=== PATIENT | male | born 1940 | race Caucasian/White ===

== ENCOUNTER 2018-05-02 11:38 | Inpatient (IN) | payer OTHER, MEDICAID ==
[~2018-05-02] VITALS: Ht 177.8 cm; Wt 68.5 kg
[2018-05-02 11:43] VITALS: BP_SYST 131
--- NOTE | 2018-05-02 11:44 | NUR ---
Patient to ER bed 03 to gown for evaluation. Side rails up. Report given to Willow.
--- NOTE | 2018-05-02 11:44 | NUR ---
patient arrived via BLS from SNF with at bedside. patient is monegasque speaking only however, has been nonverbal and responds only to . patient is at current mental baseline with c/o hiccups x24 hours. SNF staff state they were concerned because he stopped breathing during hiccupping. Oxygen saturations are maintained at 93% during assessment. no other complaint or injury at this time.
--- NOTE | 2018-05-02 11:50 | NUR ---
ER at bedside examining patient.
[2018-05-02] MEDS ORDERED: NACL 0.9% 1,000 ML IV ONE (12:00)
[2018-05-02] MEDS ORDERED: chlorproMAZINE HCL 50 MG/ 2 ML AMP IM ONE ×2 (12:15→13:15)
[2018-05-02 12:30] LABS: BASOPHILS % (AUTO) 0.6 % (0.0-2.0); EOSINOPHILS # (AUTO) 0.1 K/uL (0.0-0.4); EOSINOPHILS % (AUTO) 1.8 % (0.0-4.0); HEMATOCRIT 41.6 % (36-54); HEMOGLOBIN 13.6 g/dL (14.0-18.0); LYMPHOCYTES # (AUTO) 1.6 K/uL (1.0-5.5); MEAN CORPUSCULAR HEMOGLOBIN 31 pg (27-31); MEAN CORPUSCULAR HGB CONC 33 % (32-36); MEAN CORPUSCULAR VOLUME 94 fL (79.0-98.0); MONOCYTES # (AUTO) 0.5 K/uL (0.0-1.0); MONOCYTES % (AUTO) 8.6 % (1.7-9.3); NEUTROPHILS # (AUTO) 3.2 K/uL (1.8-7.7); PLATELET COUNT (AUTO) 204 K/uL (130-430); RED BLOOD CELL COUNT(AUTO) 4.41 MIL/uL (4.2-6.2); RED CELL DISTRIBUTION WIDTH 13.6 % (9.0-15.0); WHITE BLOOD COUNT (AUTO) 5.4 K/uL (4.8-10.8)
--- NOTE | 2018-05-02 12:30 | NUR ---
RESTING QUIETLY, NO CHANGES, REPOSITIONED FOR COMFORT.
[2018-05-02 12:45] LABS: ANION GAP 8 (5-15); CALCIUM 9.1 mg/dL (8.4-11.0); CHLORIDE 106 mmol/L (98-107); CREATININE 0.87 mg/dL (0.55-1.30); GLUCOSE 94 mg/dL (70-99); POTASSIUM 4.2 mmol/L (3.5-5.1); PROTHROMBIN TIME 9.9 SECS (9.5-12.5); SODIUM SERUM 142 mmol/L (136-145); UREA NITROGEN, BLOOD 21 mg/dL (8-21)
[2018-05-02 12:49] LABS: ALANINE AMINOTRANSFERASE 30 U/L (12-78); ASPARTATE AMINOTRANSFERASE 30 U/L (10-37); TOTAL BILIRUBIN 0.5 mg/dL (0.0-1.0)
--- NOTE | 2018-05-02 13:20 | NUR ---
patient given medication as ordered, tolerated well.
--- NOTE | 2018-05-02 13:56 | NUR ---
Patient will be admitted to [facility]. Admitted to Telemetry unit. Will go to room 113A. Belongings list completed. Summary report printed. Report will be given at bedside.
[2018-05-02 14:09] LABS: BILIRUBIN,URINE NEGATIVE (NEGATIVE); BLOOD, URINE NEGATIVE (NEGATIVE); CLARITY/URINE CLEAR (CLEAR); COLOR,URINE YELLOW (YELLOW); GLUCOSE,URINE NEGATIVE (NEGATIVE); KETONES,URINE NEGATIVE (NEGATIVE); LEUKOCYTE ESTERASE ,URINE NEGATIVE (NEGATIVE); NITRITE, URINE NEGATIVE (NEGATIVE); PROTEIN URINE NEGATIVE (NEGATIVE); UROBILINOGEN,URINE 0.2 (0.2-1.0)
--- NOTE | 2018-05-02 14:20 | NUR ---
Admission Note Received patient from ER with diagnosis of CHF. Initial Plan of Care discussed-patient verbalized understanding. Family at bedside. Oriented to room, call light, pain management and safety.
[2018-05-02 14:22] VITALS: BP_SYST 153
[2018-05-02] MEDS ORDERED: MEMA10TA PO (14:30)
[2018-05-02] MEDS ORDERED: TAMS-11 PO (14:30)
[2018-05-02] MEDS ORDERED: DOCU-144 PO (14:30)
[2018-05-02] MEDS ORDERED: MULT-976 PO (14:30)
[2018-05-02] MEDS ORDERED: LISI10TA5 PO (14:30)
[2018-05-02] MEDS ORDERED: LORA10TA7 PO (14:30)
[2018-05-02] MEDS ORDERED: CEL20 PO (14:30)
[2018-05-02] MEDS ORDERED: ASPI-1153 PO (14:30)
[2018-05-02] MEDS ORDERED: PRO40 PO (14:30)
[2018-05-02] MEDS ORDERED: PEG15DRO5 OP (14:30)
[2018-05-02] MEDS ORDERED: ACET325T53 PO (14:30)
--- NOTE | 2018-05-02 14:30 | NUR ---
NOTE PATIENT AWAKE IN BED. ALERT AND CONFUSED. UNABLE TO MAKE NEEDS KNOWN. ROOM AIR. NO ACUTE DISTRESS. NO SOB. RESPIRATION EVEN AND UNLABORED. SKIN WARM AND DRY TO TOUCH. IV INTACT AND PATENT. BED IN LOW AND LOCKED POSITION. SIDERAIL UP X3. BED ALARM ON. ROOM NEAR NURSES STATION. ALL NEEDS MET. AT BEDSIDE. CONT TO MONITOR. CALL LIGHT IN REACH
--- NOTE | 2018-05-02 16:15 | NUR ---
NOTE REPOSITIONED PATIENT WITH BIOLOGY INTERNSHIP, RANDA WELL. KEPT CLEAN AND DRY. CONT TO MONITOR
--- NOTE | 2018-05-02 18:17 | NUR ---
CLOSING NOTE PATIENT AWAKE IN BED. SPEAKING MONTSERRATIAN. CONFUSED. NO ACUTE DISTRESS. DENIES PAIN. PATIENT NOTED WITH HICCUPS. SKIN WARM AND DRY TO TOUCH. KEPT CLEAN AND DRY. ALL NEEDS MET. AT BEDSIDE. BED LOW AND LOCKED POSITION. SIDERAIL UP. BED ALARM ON. CALL LIGHT IN REACH. CONT TO MONITOR. WILL ENDORSE TO ONCOMING SHIFT
[2018-05-02 18:26] VITALS: BP_SYST 154
[2018-05-02] MEDS ORDERED: chlorproMAZINE HCL 50 MG/ 2 ML AMP IM PRN (18:45)
[2018-05-02] MEDS ORDERED: ACETAMINOPHEN 325 MG TABLET PO PRN (18:45)
[2018-05-02] MEDS ORDERED: BISACODYL 10 MG/SUPPOSITORY RC PRN (19:00)
--- NOTE | 2018-05-02 19:45 | NUR ---
Initial Note Received patient asleep but arousable. Awake, opens eyes but went back to sleep after few minutes. Didn't speak. and son at the bedside. No SOB or grimacing noted at this time. Fall and skin precautions observed. Dr. Akbar saw the patient with orders. Skin intact and no peripheral edema noted. Needs attended. Care and monitoring will be provided per protocol. Call light within reach. Bed alarm on and at lowest position at all times. Kept warm and comfortable.
--- NOTE | 2018-05-02 19:58 | NUR ---
CONSULTATION PAGED/CALLED Reason for Consultation: HICCUP Person Who was Notified: KOLTON Consulting Physician: DR. MAJANO; SECURITIES SUPERVISOR- DR. SILVA Ordering Physician: DR. WILLARD
[2018-05-02 20:00] VITALS: BP_SYST 132
[2018-05-02] MEDS: KCL 20 mEq in D5/0.45NS 1000mL 1,000 ML IV SCH (20:29)
[2018-05-02] MEDS: SENNOSIDES 8.6 MG TABLET PO SCH (21:45)
--- NOTE | 2018-05-02 21:45 | NUR ---
RN Note Patient asleep but arousable. IVF infusing. Crushed meds and given with apple sauce, tolerated well. Encouraged to drink more water but refused. Repositioned. Kept comfortable.
--- NOTE | 2018-05-02 23:30 | NUR ---
RN Note Arousable. Repositioned. Heels off bed. No SOB or grimacing noted. Kept clean, dry and comfortable.
[2018-05-03] VITALS: BP_SYST 113
--- NOTE | 2018-05-03 02:00 | NUR ---
RN Note Asleep but arousable. No distress noted. Repositioned. Kept comfortable.
--- NOTE | 2018-05-03 04:30 | NUR ---
RN Note Patient arousable. Mumbles words but incomprehensible. No SOB or grimacing noted. Repositioned. Had urine incontinence. Heels off bed. Incontinence and skin care done. Kept clean, dry and comfortable. IVF infusing.
--- NOTE | 2018-05-03 06:48 | NUR ---
End Note Afebrile. VS stable. No SOB or grimacing noted throughout the night. Incontinent and skin care provided. Repositioned Q2 hours. IVF infusing. Skin and fall precautions observed. Care and monitoring provided per protocol. Needs attended. Call light within reach. Bed alarm on and at lowest position at all times. Sinus bradycardia at 43 bpm on monitor. Weight taken daily. Needs DVT prophylaxis, will endorse. Kept warm and comfortable.
--- NOTE | 2018-05-03 08:00 | NUR ---
Opening notes, received pt in bed, pt is very sleepy, opening eyes to pressure on chest, mumbles only. vitals wnl, no fever, o2 sat is 94% on ra. safety precaution in place. call light in reach. bed in low position. bed alarm on . will cont to monitor.
[2018-05-03] MEDS: KCL 20 mEq in D5/0.45NS 1000mL 1,000 ML IV SCH ×2 (09:16→23:54)
[2018-05-03] MEDS: PANTOPRAZOLE SODIUM 40 MG TAB PO SCH (09:18)
[2018-05-03] MEDS: ASPIRIN 81 MG TABLET(ECOTRIN) PO SCH (09:18)
[2018-05-03] MEDS: PEG 400/HYPROMELLOSE/GLYCERIN 15 ML DROPS OP SCH (09:18)
[2018-05-03] MEDS: LISINOPRIL 10 MG TABLET (PRINIVIL) PO SCH (09:18)
[2018-05-03] MEDS: MULTIVITAMINS TAB 1 TABLET PO SCH (09:19)
[2018-05-03] MEDS: LORATADINE 10 MG TABLET PO SCH (09:19)
[2018-05-03] MEDS: CITALOPRAM HYDROBROMIDE 20 MG TABLET PO SCH (09:19)
[2018-05-03] MEDS: DOCUSATE SODIUM 100 MG CAPSULE PO SCH (09:19)
[2018-05-03] MEDS: MEMANTINE HCL 5 MG TABLET PO SCH (09:19)
--- NOTE | 2018-05-03 09:55 | NUR ---
pt in bed, appears comfortable, no s/s of distress. pt turned and repositioned. bed alarm on. will cont to monitor.
--- NOTE | 2018-05-03 10:58 | NUR ---
JC SCALE EVALUATION: Patient evaluated for a low Jc score of 13. Patient was asleep but arousable, opens eyes to stimuli, but goes back to sleep after a few minutes, non-verbal, and received in a Kaleb bed with an IsoFlex OLGA mattress. Patient is unable to turn in bed independently. Skin is fair. Recommend reposition patient every 2 hours with pillow support and off-load pressure areas with pillows for pressure re-distribution. Elevate, offload and float bilateral heels with one pillow lengthwise under each extremity at all times. Use moisture barrier cream on buttocks and other moisture susceptible areas QID and as needed for soiling. Perform skin care and monitor skin integrity Q shift. Place patient on a low air-loss mattress. Skin assessment: 1. Bilateral heels: Blanchable erythema. Recommend: Elevate, offload and float bilateral heels with one pillow lengthwise under each extremity at all times.
--- NOTE | 2018-05-03 11:38 | NUR ---
Nutrition Update Jc Scale 13 noted. Pt admitted for CHF. Diet: cardiac BMI: 22.3 kg/m2 RD to follow per nutrition care standards.
--- NOTE | 2018-05-03 12:30 | NUR ---
pt in bed, family at bedside assisting pt with lunch. no s/s of pain, no resp distress. family encouraged to call for assist.
[2018-05-03 12:33] VITALS: BP_SYST 130
--- NOTE | 2018-05-03 16:00 | NUR ---
pt' son Lam here at bedside. updated with poc per dr ortega. requested for md's phone no. provided dr ortega's phone number.
[2018-05-03 16:45] VITALS: BP_SYST 126
--- NOTE | 2018-05-03 18:30 | NUR ---
CLOSING NOTES, PT HAS BEEN STABLE THE WHOLSE SHIFT, NO C/O PAIN, NO EPISODES OF RESP DISTRESS. IV FLUIDS INFUSING WELL. NO S/S OF INFILTRATION ON IV SITE. SAFETY PRECAUTION KEPT IN PLACE. WILL ENDORSE TO NIGHT RN.
--- NOTE | 2018-05-03 19:32 | NUR ---
OPENING NOTES RECEIVED CARE OF PT AND BEDSIDE REPORT. PT RESTING IN BED WITH AT BEDSIDE. BREATHING EVEN AND EFFORTLESSLY TO ROOM AIR. NO SIGNS OF ACUTE DISTRESS NOTED. PT INSTRUCTED TO CALL FOR ASSISTANCE. SAFETY PRECAUTIONS OBSERVED. WILL CONTINUE TO MONITOR.
[2018-05-03] MEDS: MEGESTROL ACETATE 400 MG/10 ML UDC PO SCH (21:03)
[2018-05-03] MEDS: SENNOSIDES 8.6 MG TABLET PO SCH (21:03)
--- NOTE | 2018-05-03 22:00 | NUR ---
NURSING NOTE PT RESTING IN BED WITH EYES CLOSED. BREATHING EVEN AND EFFORTLESSLY TO ROOM AIR, SYMMETRICAL RISE AND FALL OF CHEST. SAFETY PRECAUTION IN PLACE, CALL LIGHT WITH PT. WILL CONTINUE TO MONITOR.
--- NOTE | 2018-05-04 | NUR ---
NURSING NOTE PT RESTING IN BED WITH NO ACUTE DISTRESS NOTED. BREATHING IS SYMMETRICAL, SAFETY PRECAUTION IN PLACE. WILL CONTINUE TO MONITOR.
[2018-05-04 00:48] VITALS: BP_SYST 132
--- NOTE | 2018-05-04 02:00 | NUR ---
NURSING NOTE PT RESTING IN BED, EYES ARE CLOSED. BREATHING IS EVEN AND EFFORTLESS TO ROOM AIR. NO SIGNS OF DISTRESS NOTED. SAFETY PRECAUTIONS IN PLACE. WILL CONTINUE TO MONITOR.
--- NOTE | 2018-05-04 04:30 | NUR ---
NURSING NOTE PT RESTING IN BED WITH EYES CLOSED. NO SIGNS OF DISTRESS. BREATHING IS SYMMETRICAL. IVF INFUSING ORDERED. SAFETY PRECAUTION IN PLACE. WILL CONTINUE TO MONITOR.
--- NOTE | 2018-05-04 07:00 | NUR ---
DR. SIMA GAO IS HERE AND SAW PT.
--- NOTE | 2018-05-04 07:20 | NUR ---
CLOSING NOTE PT IS STABLE, ENDORSED CARE TO DAY SHIFT RN BEDSIDE REPORT GIVEN
[2018-05-04 08:00] VITALS: BP_SYST 146
--- NOTE | 2018-05-04 08:00 | NUR ---
Opening Note received report from manager night RN, pt resting in bed, A&Ox1, respirations even and unlabored on room air, pt denies any pain, no acute distress noted, IV site clean, dry, intact, and infusing well, pt educated on use of call light and asked to call for assistance, pt verbalized understanding, call light in reach, bed in low and locked position, bed alarm on, room close to nurses station, fall and aspiration precautions in place.
[2018-05-04] MEDS: MEGESTROL ACETATE 400 MG/10 ML UDC PO SCH ×2 (08:12→20:10)
[2018-05-04] MEDS: DOCUSATE SODIUM 100 MG CAPSULE PO SCH (08:12)
[2018-05-04] MEDS: PEG 400/HYPROMELLOSE/GLYCERIN 15 ML DROPS OP SCH (08:12)
[2018-05-04] MEDS: LISINOPRIL 10 MG TABLET (PRINIVIL) PO SCH (08:13)
[2018-05-04] MEDS: MEMANTINE HCL 5 MG TABLET PO SCH (08:13)
[2018-05-04] MEDS: LORATADINE 10 MG TABLET PO SCH (08:13)
[2018-05-04] MEDS: ASPIRIN 81 MG TABLET(ECOTRIN) PO SCH (08:13)
[2018-05-04] MEDS: MULTIVITAMINS TAB 1 TABLET PO SCH (08:14)
[2018-05-04] MEDS: PANTOPRAZOLE SODIUM 40 MG TAB PO SCH (08:14)
[2018-05-04] MEDS: CITALOPRAM HYDROBROMIDE 20 MG TABLET PO SCH (08:14)
--- NOTE | 2018-05-04 08:24 | NUR ---
Medication pt educated on medication use and side effects, tolerated medication administration well, no acute distress noted, fall and aspiration precautions in place.
--- NOTE | 2018-05-04 09:00 | NUR ---
Tap water enema orders for tap water enema this AM until clear, pt educated on purpose and procedure for tap water enema, pt verbalized understanding, tap water enema given per protocol, pt tolerated well, pt denied any pain or cramping, stool clear, pt cleaned and repositioned, no acute distress noted, fall and aspiration precautions in place.
--- NOTE | 2018-05-04 10:30 | NUR ---
RN Rounds pt sleeping in bed, respirations even and unlabored on room air, no pain noted, no acute distress noted, fall and aspiration precautions in place.
[2018-05-04 12:02] VITALS: BP_SYST 151
--- NOTE | 2018-05-04 12:10 | NUR ---
RN Rounds/Spoke with Son pts son Lam at bedside, pts son updated on plan of care, informed that there are no orders for discharge at this time, understanding verbalized, pt resting in bed, respirations even and unlabored on room air, no acute distress noted, fall and aspiration precautions in place.
--- NOTE | 2018-05-04 13:54 | NUR ---
Incontinent of bowel pt incontinent of bowel, pt cleaned and linen changed, pt assisted to reposition, tolerated well, no acute distress noted, fall and aspiration precautions in place.
--- NOTE | 2018-05-04 15:55 | NUR ---
RN Rounds pt resting in bed, awake, respirations even and unlabored on room air, pt denies any pain, no acute distress noted, no additional needs at this time, fall and aspiration precautions in place.
[2018-05-04 16:02] VITALS: BP_SYST 125
--- NOTE | 2018-05-04 16:54 | NUR ---
Spoke with MD spoke with Dr. Akbar, orders for DVT prophylaxis lovenox 40mg SubQ daily, verified with read back.
--- NOTE | 2018-05-04 17:10 | NUR ---
Reposition pt resting in bed, respirations even and unlabored on room air, no acute distress noted, pt assisted to reposition, tolerated well, family at bedside, fall and aspiration precautions in place.
--- NOTE | 2018-05-04 19:13 | NUR ---
Closing Note pt resting in bed, A&Ox1, respirations even and unlabored on room air, pt denies any pain, no acute distress noted, IV site clean, dry, intact, and infusing well, pt educated on use of call light and asked to call for assistance, pt verbalized understanding, call light in reach, bed in low and locked position, bed alarm on, room close to nurses station, fall and aspiration precautions in place. Addendum: 05/04/18 at 4 by Clara Costa RN care endorsed to manufacturing supervisor 2nd shift RN.
--- NOTE | 2018-05-04 19:40 | NUR ---
OPENING NOTE PT RESTING IN BED. NO SIGNS OF ACUTE DISTRESS NOTED AT THIS TIME. IVF INFUSING ORDERED, NO SIGNS OF INFILTRATION AT IV SITE. BREATHING EVEN AND EFFORTLESSLY TO ROOM AIR. PT INSTRUCTED TO CALL FOR ASSISTANCE. WILL CONTINUE TO MONITOR.
[2018-05-04 20:00] VITALS: BP_SYST 99
[2018-05-04] MEDS: SENNOSIDES 8.6 MG TABLET PO SCH (20:10)
--- NOTE | 2018-05-04 21:45 | NUR ---
CHANGED PT/COMPLETE LINEN CHANGE PT CLEANED AND CHANGED INTO NEW GOWN. LINEN ON BED CHANGED. PT TOLERATED WELL. IVF INFUSING ORDERED. BREATHING IS EVEN AND EFFORTLESS TO ROOM AIR. NO SIGNS OF ACUTE DISTRESS NOTED AT THIS TIME. SAFETY PRECAUTIONS ARE IN PLACE. WILL CONTINUE TO MONITOR.
[2018-05-04] MEDS: KCL 20 mEq in D5/0.45NS 1000mL 1,000 ML IV SCH (23:57)
--- NOTE | 2018-05-05 01:00 | NUR ---
PT NOTE PT RESTING IN BED WITH EYES CLOSED. EASILY AROUSED TO SPEECH. BREATHING EVEN AND EFFORTLESSLY TO ROOM AIR, CHEST RISE AND FALL IS SYMMETRICAL. IVF INFUSING ORDERED, NO SIGN OF INFILTRATION AT THE IV SITE. SAFETY PRECAUTIONS IN PLACE, BED IN LOWEST POSITION, CALL LIGHT WITH PATIENT, SIDE RAILS UP, ROOM CLOSE TO NURSING STATION. WILL CONTINUE TO MONITOR.
[2018-05-05 01:36] VITALS: BP_SYST 157
--- NOTE | 2018-05-05 02:25 | NUR ---
NURSING NOTE PT RESTING IN BED WITH EYES CLOSED. PT APPEARS COMFORTABLE. BREATHING IS EFFORTLESS TO ROOM AIR, CHEST RISE AND FALL IS SYMMETRICAL. NO SIGNS OF ACUTE DISTRESS NOTED AT THIS TIME. SAFETY PRECAUTIONS ARE IN PLACE. WILL CONTINUE TO MONITOR.
--- NOTE | 2018-05-05 04:53 | NUR ---
ROUNDS Patient sleeping, respirations even and unlabored, incontinence care provided, repositioned and turned with pillow support. Safety measures in place, call light within reach, will monitor.
--- NOTE | 2018-05-05 06:25 | NUR ---
CLOSING NOTE PT RESTING IN BED WITH EYES CLOSED. NO SIGNS OF DISTRESS AT THIS TIME. PT IS BREATHING EVEN AND EFFORTLESSLY TO ROOM AIR. CHEST RISE AND FALL IS SYMMETRICAL. IVF ARE INFUSING ORDERED, NO SIGNS OF INFILTRATION AT IV SITE. ALL NEEDS MET DURING SHIFT. WILL ENDORSE CARE TO DAY SHIFT RN.
--- NOTE | 2018-05-05 08:00 | NUR ---
OPENING NOTE PATIENT IS RESTING IN BED WITH EYES OPEN, PATIENT IS A&O X 1 TO NAME, PATIENT IS EATING BREAKFAST INDEPENDENTLY AND TOLERATING WELL, NO ACUTE DISTRESS OF PAIN IS NOTED, BREATHING IS EVEN AND UNLABORED, EDUCATED PATIENT ON PLAN OF CARE AND CALL LIGHT SYSTEM, IVF INFUSING WELL WITH NO SIGNS OF INFILTRATION, WILL CONTINUE TO MONITOR, SAFETY PRECAUTIONS IN PLACE, CALL LIGHT WITHIN REACH.
[2018-05-05 08:10] VITALS: BP_SYST 157
[2018-05-05] MEDS: PEG 400/HYPROMELLOSE/GLYCERIN 15 ML DROPS OP SCH (08:45)
[2018-05-05] MEDS: PANTOPRAZOLE SODIUM 40 MG TAB PO SCH (08:46)
[2018-05-05] MEDS: MEMANTINE HCL 5 MG TABLET PO SCH (08:46)
[2018-05-05] MEDS: MULTIVITAMINS TAB 1 TABLET PO SCH (08:46)
[2018-05-05] MEDS: DOCUSATE SODIUM 100 MG CAPSULE PO SCH (08:46)
[2018-05-05] MEDS: LISINOPRIL 10 MG TABLET (PRINIVIL) PO SCH (08:46)
[2018-05-05] MEDS: LORATADINE 10 MG TABLET PO SCH (08:46)
[2018-05-05] MEDS: ASPIRIN 81 MG TABLET(ECOTRIN) PO SCH (08:46)
[2018-05-05] MEDS: MEGESTROL ACETATE 400 MG/10 ML UDC PO SCH ×2 (08:46→20:37)
[2018-05-05] MEDS: CITALOPRAM HYDROBROMIDE 20 MG TABLET PO SCH (08:47)
[2018-05-05] MEDS ORDERED: ENOXAPARIN SODIUM 40 MG/0.4 ML SYRINGE SUBCUT SCH (09:00)
--- NOTE | 2018-05-05 10:18 | NUR ---
NOTES PATIENT IS RESTING IN BED, CHANGED PATIENT FOR EPISODE OF URINE INCONTINENCE, PATIENT TOLERATED WELL, REPOSITIONED PATIENT FOR COMFORT, NO ACUTE DISTRESS OR PAIN NOTED, BREATHING IS EVEN AND UNLABORED, IVF INFUSING WELL, WILL CONTINUE TO MONITOR, SAFETY PRECAUTIONS IN PLACE, CALL LIGHT WITHIN REACH.
[2018-05-05 12:00] VITALS: BP_SYST 142
--- NOTE | 2018-05-05 12:15 | NUR ---
notes patient is resting in bed, no acute distress or pain is noted at this time, IVF infusing well with no signs of infiltration, breathing is even and unlabored, will continue to monitor, safety precautions in place, call light within reach.
[2018-05-05] MEDS: KCL 20 mEq in D5/0.45NS 1000mL 1,000 ML IV SCH (13:20)
--- NOTE | 2018-05-05 14:10 | NUR ---
NOTES PATIENT IS RESTING IN BED WATCHING TV, NO SIGNS OF ACUTE DISTRESS OR PAIN IS NOTED AT THIS TIME, IVF INFUSING WELL WITH NO SIGNS OF INFILTRATION, BREATHING IS EVEN AND UNLABORED, SON IS AT BEDSIDE, WILL CONTINUE TO MONITOR, SAFETY PRECAUTIONS IN PLACE, CALL LIGHT WITHIN REACH.
[2018-05-05 16:15] VITALS: BP_SYST 136
--- NOTE | 2018-05-05 16:25 | NUR ---
NOTES PATIENT IS RESTING IN BED WITH EYES OPEN, BREATHING IS EVEN AND UNLABORED ON ROOM AIR, IVF INFUSING WELL WITH NO SIGNS OF INFILTRATION, NO ACUTE DISTRESS OR PAIN IS NOTED AT THIS TIME, WILL CONTINUE TO MONITOR, FAMILY IS AT BEDSIDE, BREATHING IS EVEN AND UNLABORED, SAFETY PRECAUTIONS IN PLACE, CALL LIGHT WITHIN REACH.
--- NOTE | 2018-05-05 19:04 | NUR ---
CLOSING NOTE PATIENT IS RESTING IN BED WITH EYES OPEN WATCHING TV, IVF INFUSING WELL WITH NO SIGNS OF INFILTRATION, BREATHING IS EVEN AND UNLABORED, ALL NEEDS WERE MET THROUGHOUT SHIFT, WILL ENDORSE REPORT TO ONCOMING NURSE, SAFETY PRECAUTIONS IN PLACE, CALL LIGHT WITHIN REACH.
--- NOTE | 2018-05-05 19:25 | NUR ---
OPENING NOTE RECEIVED CARE OF PT AND BEDSIDE REPORT. PT RESTING IN BED WITH NO SIGNS OF ACUTE DISTRESS NOTED. IVF INFUSING ORDERED. PT REPOSITIONED IN BED FOR COMFORT. SAFETY PRECAUTIONS ARE IN PLACE, BED IN LOWEST POSITION, CALL LIGHT WITH PATIENT, SIDE RAILS UP, CLOSE TO NURSING STATION. WILL CONTINUE TO MONITOR.
--- NOTE | 2018-05-05 20:25 | NUR ---
TRANSFER ACKNOWLEDGEMENT TELEPHONE CONSENT Patient's transfer acknowledgement telephone consent was obtained from patient's two sons, Lam Juarez Jr ([phone]) and Josh Juarez ([phone]) with no further questions or concerns. Verified and witnessed with licensed nurse, RAGHAV Palacios.
[2018-05-05] MEDS: SENNOSIDES 8.6 MG TABLET PO SCH (20:37)
[2018-05-05 20:56] VITALS: BP_SYST 130
--- NOTE | 2018-05-05 20:57 | NUR ---
AMBULANCE ARRANGEMENT CALLED [facility] @ [phone] SPOKE WITH ALICE. PATIENT WILL BE TRANSPORTED TO [facility] ROOM 23A. ETA IS [phone].
--- NOTE | 2018-05-05 21:04 | NUR ---
REPORT GIVEN TO RAGHAV ROMO FROM [facility] SBAR report was given to RAGHAV Romo from [facility] who said she is the nursing roofing supervisor [facility] who will receive the patient. Requested for patient to keep IV access to right f/a 18g.
--- NOTE | 2018-05-05 21:38 | NUR ---
BLS HERE TO DIRECTOR OF DIAGNOSTIC IMAGING PATIENT/SON ALSO MADE AWARE THAT PATIENT IS LEAVING Shawn and Romeo from [facility] is here to product picker patient for transfer to [facility]. Patient is stable with no s/s of acute distress.
--- NOTE | 2018-05-05 21:50 | NUR ---
D/C Patient Patient given medication reconciliation form and D/C instructions. Exit Care provided. Patient unable to verbalize understanding. Patient in stable condition, medical ID band removed and replaced with full name and date of . IV catheter is dry and intact, kept in place as requested by receiving nurse, RAGHAV Romo, at [facility]. Discharge packet and 24 hour medication report given. All belongings (blanket and [facility] ID band) sent with patient.
== END 2018-05-05 21:50 | DRG 202 ==
LOC: SED 11:38 → STU 13:44
PROVIDERS: ADMIT Family Medicine; ATTEND Family Medicine
DX: J20.9 Acute bronchitis, unspecified (principal); G93.41 Metabolic encephalopathy; J90 Pleural effusion, not elsewhere classified; F02.80 Dementia in other diseases classified elsewhere, unspecified severity, without behavioral disturbance, psychotic disturbance, mood disturbance, and anxiety; G30.9 Alzheimer's disease, unspecified; I11.9 Hypertensive heart disease without heart failure; K59.09 Other constipation; M19.90 Unspecified osteoarthritis, unspecified site; R00.1 Bradycardia, unspecified; R06.6 Hiccough; Z79.899 Other long term (current) drug therapy; Z79.82 Long term (current) use of aspirin
CPT/HCPCS: 36415; 71045; 74018; 80053; 81003; 83605; 83880; 84484; 85025; 85610-TC; 85730-TC; 87040-TC; 87081; 87086; 93005; 96360; 96372; 99285; G0378; J1650; J3230

== ENCOUNTER 2018-05-23 10:50 | Inpatient (IN) | payer OTHER, MEDICAID ==
[~2018-05-23] VITALS: Ht 172.7 cm; Wt 61.7 kg
[2018-05-23] VITALS (9 sets, daily range): BP systolic 100–137
[~2018-05-23 10:50] MED LIST: ACET325T53 PO; ASPI-1153 PO; CEL20 PO; DOCU-144 PO; LISI10TA5 PO; LORA10TA7 PO; MEMA10TA PO; MULT-976 PO; PEG15DRO5 OP; PRO40 PO; TAMS-11 PO
[2018-05-23 11:48] LABS: SODIUM SERUM 152 mmol/L (136-145)
[2018-05-23 11:49] LABS: ANION GAP 11 (5-15); CALCIUM 10.5 mg/dL (8.4-11.0); CHLORIDE 116 mmol/L (98-107); CREATININE 1.76 mg/dL (0.55-1.30); GLUCOSE 134 mg/dL (70-99); POTASSIUM 4.6 mmol/L (3.5-5.1); UREA NITROGEN, BLOOD 64 mg/dL (8-21)
[2018-05-23 11:54] LABS: ALANINE AMINOTRANSFERASE 61 U/L (12-78); ASPARTATE AMINOTRANSFERASE 38 U/L (10-37); TOTAL BILIRUBIN 0.8 mg/dL (0.0-1.0)
[2018-05-23 12:12] LABS: EOSINOPHILS % (AUTO) 0.1 % (0.0-4.0); HEMATOCRIT 41.7 % (36-54); HEMOGLOBIN 13.8 g/dL (14.0-18.0); LYMPHOCYTES # (AUTO) 2.2 K/uL (1.0-5.5); LYMPHOCYTES % (AUTO) 11.9 % (20.5-51.5); MEAN CORPUSCULAR HEMOGLOBIN 32 pg (27-31); MEAN CORPUSCULAR HGB CONC 33 % (32-36); MEAN CORPUSCULAR VOLUME 95 fL (79.0-98.0); MONOCYTES # (AUTO) 1.1 K/uL (0.0-1.0); MONOCYTES % (AUTO) 5.9 % (1.7-9.3); PLATELET COUNT (AUTO) 254 K/uL (130-430); RED BLOOD CELL COUNT(AUTO) 4.38 MIL/uL (4.2-6.2); RED CELL DISTRIBUTION WIDTH 13.6 % (9.0-15.0); WHITE BLOOD COUNT (AUTO) 18.5 K/uL (4.8-10.8)
[2018-05-23 12:20] LABS: INR 0.9 (0.80-1.20); PROTHROMBIN TIME 9.6 SECS (9.5-12.5)
[2018-05-23 12:26] LABS: BILIRUBIN,URINE NEGATIVE (NEGATIVE); BLOOD, URINE NEGATIVE (NEGATIVE); CLARITY/URINE CLEAR (CLEAR); COLOR,URINE YELLOW (YELLOW); GLUCOSE,URINE NEGATIVE (NEGATIVE); KETONES,URINE NEGATIVE (NEGATIVE); LEUKOCYTE ESTERASE ,URINE NEGATIVE (NEGATIVE); NITRITE, URINE NEGATIVE (NEGATIVE); PH,URINE 5.5 (5.0-8.0); PROTEIN URINE 1+ (NEGATIVE)
[2018-05-23 12:28] LABS: BASOPHILS % (AUTO) 0.1 % (0.0-2.0); NEUTROPHILS # (AUTO) 15.2 K/uL (1.8-7.7)
[2018-05-23 12:34] LABS: BARBITURATE, URINE NEGATIVE (NEG <=200); BENZODIAZEPINE, URINE NEGATIVE (NEG <=150); CANNABINOID, URINE NEGATIVE (NEG <=50); COCAINE, URINE NEGATIVE (NEG <=150); METHAMPHETAMINES SCREEN,URINE NEGATIVE (NEG <=500); OPIATE, URINE NEGATIVE (NEG <=100); PHENCYCLIDINE SCREEN,URINE NEGATIVE (NEG <=25); UR TRICYCLIC ANTIDEPRESSANTS NEGATIVE (NEG <=300); URINE AMPHETAMINE NEGATIVE (NEG <=500); URINE METHADONE NEGATIVE (NEG <=200); URINE OXYCODONE SCREEN NEGATIVE (NEG <=100); URINE PROPOXYPHENE SCREEN NEGATIVE (NEG <=300)
[2018-05-23] MEDS ORDERED: DIPHENHYDRAMINE INJ 50 MG/ML VIAL IVP ONE (12:45)
[2018-05-23] MEDS ORDERED: cefTRIAXone 1 GM IVPB PREMIX 50 ML IV SCH (13:30)
[2018-05-23] MEDS ORDERED: NACL 0.9% 1,000 ML IV ONE (13:30)
[2018-05-23] MEDS ORDERED: VANCOMYCIN HCL 1,000 MG in NS 250 ML IV ONE (13:30)
[2018-05-23] MEDS ORDERED: VANCOMYCIN HCL 1000 MG/VIAL IV ONE (13:46)
[2018-05-23] MEDS: D5/0.45 NS 1,000 ML IV SCH (15:45)
[2018-05-23] MEDS ORDERED: ACETAMINOPHEN 325 MG TABLET PO PRN (16:00)
[2018-05-23] MEDS ORDERED: *LOVENOX 1MG/KG Q12H/PHARMACY XX PRN (16:15)
[2018-05-23] MEDS ORDERED: DILTIAZEM HCL 25 MG/5 ML VIAL IVP ONE (16:30)
[2018-05-23] MEDS ORDERED: ENOXAPARIN SODIUM 60 MG/0.6 ML SYRINGE SUBCUT ONE (16:45)
[2018-05-23 16:47] LABS: CKMB RELATIVE INDEX 0.1 (0.0-2.9); CREATINE KINASE MB 0.4 ng/mL (0-3.6)
[2018-05-23] MEDS ORDERED: DILTIAZEM HCL 125 MG in D5W 100 ML IV SCH (17:45)
[2018-05-23] MEDS ORDERED: DIGOXIN 0.5 MG/2 ML AMP IVP ONE (17:45)
[2018-05-23] MEDS: chlorproMAZINE HCL 50 MG/ 2 ML AMP IV PRN (22:27)
[2018-05-23] MEDS: metroNIDAZOLE 500 mg/NS 100 ML IV SCH (22:30)
[2018-05-24] VITALS (20 sets, daily range): BP systolic 97–160
[2018-05-24] MEDS: D5/0.45 NS 1,000 ML IV SCH ×4 (03:09→21:17)
[2018-05-24 05:53] LABS: ANION GAP 12 (5-15); CALCIUM 9.4 mg/dL (8.4-11.0); CHLORIDE 118 mmol/L (98-107); CREATININE 1.35 mg/dL (0.55-1.30); GLUCOSE 148 mg/dL (70-99); POTASSIUM 3.9 mmol/L (3.5-5.1); SODIUM SERUM 154 mmol/L (136-145); UREA NITROGEN, BLOOD 50 mg/dL (8-21)
[2018-05-24] MEDS: PANTOPRAZOLE SODIUM 40 MG TAB PO SCH (06:00)
[2018-05-24 06:02] LABS: ALANINE AMINOTRANSFERASE 57 U/L (12-78); ALBUMIN 2.5 g/dL (3.4-4.8); ASPARTATE AMINOTRANSFERASE 37 U/L (10-37); TOTAL BILIRUBIN 0.6 mg/dL (0.0-1.0)
[2018-05-24] MEDS: metroNIDAZOLE 500 mg/NS 100 ML IV SCH ×3 (06:31→21:17)
[2018-05-24 07:11] LABS: BASOPHILS % (AUTO) 0.2 % (0.0-2.0); EOSINOPHILS # (AUTO) 0.1 K/uL (0.0-0.4); EOSINOPHILS % (AUTO) 0.9 % (0.0-4.0); HEMATOCRIT 38.3 % (36-54); HEMOGLOBIN 12.5 g/dL (14.0-18.0); LYMPHOCYTES # (AUTO) 1.2 K/uL (1.0-5.5); LYMPHOCYTES % (AUTO) 9.4 % (20.5-51.5); MEAN CORPUSCULAR HEMOGLOBIN 31 pg (27-31); MEAN CORPUSCULAR HGB CONC 33 % (32-36); MEAN CORPUSCULAR VOLUME 96 fL (79.0-98.0); MONOCYTES # (AUTO) 0.8 K/uL (0.0-1.0); MONOCYTES % (AUTO) 6.2 % (1.7-9.3); NEUTROPHILS # (AUTO) 10.6 K/uL (1.8-7.7); NEUTROPHILS % (AUTO) 83.3 % (40.0-70.0); PLATELET COUNT (AUTO) 248 K/uL (130-430); RED BLOOD CELL COUNT(AUTO) 3.99 MIL/uL (4.2-6.2); RED CELL DISTRIBUTION WIDTH 13.8 % (9.0-15.0); WHITE BLOOD COUNT (AUTO) 12.7 K/uL (4.8-10.8)
[2018-05-24] MEDS: CITALOPRAM HYDROBROMIDE 20 MG TABLET PO SCH ×2 (09:00→18:03)
[2018-05-24] MEDS: LISINOPRIL 10 MG TABLET (PRINIVIL) PO SCH ×2 (09:00→18:19)
[2018-05-24] MEDS: ASPIRIN 81 MG TABLET(ECOTRIN) PO SCH ×2 (09:00→18:19)
[2018-05-24] MEDS: MULTIVITAMINS TAB 1 TABLET PO SCH ×2 (09:00→18:19)
[2018-05-24] MEDS: DOCUSATE SODIUM 100 MG CAPSULE PO SCH ×2 (09:00→18:18)
[2018-05-24] MEDS: LORATADINE 10 MG TABLET PO SCH ×2 (09:00→18:02)
[2018-05-24] MEDS: MEMANTINE HCL 5 MG TABLET PO SCH ×2 (09:00→18:20)
[2018-05-24] MEDS ORDERED: ENOXAPARIN SODIUM 60 MG/0.6 ML SYRINGE SUBCUT SCH (09:00)
[2018-05-24] MEDS: ENOXAPARIN SODIUM 60 MG/0.6 ML SYRINGE SUBCUT SCH ×2 (09:05→21:16)
[2018-05-24] MEDS: PEG 400/HYPROMELLOSE/GLYCERIN 15 ML DROPS OP SCH (09:06)
[2018-05-24] MEDS: cefTRIAXone 1 GM IVPB PREMIX 50 ML IV SCH (13:29)
[2018-05-24] MEDS: DILTIAZEM HCL 30 MG TABLET PO SCH (21:15)
[2018-05-25 00:11] VITALS: BP_SYST 120
[2018-05-25] MEDS: D5/0.45 NS 1,000 ML IV SCH ×3 (05:27→17:41)
[2018-05-25] MEDS: metroNIDAZOLE 500 mg/NS 100 ML IV SCH ×3 (05:28→21:36)
[2018-05-25] MEDS: DILTIAZEM HCL 30 MG TABLET PO SCH ×3 (05:28→21:37)
[2018-05-25] MEDS: PANTOPRAZOLE SODIUM 40 MG TAB PO SCH (05:28)
[2018-05-25 07:25] LABS: ANION GAP 6 (5-15); CALCIUM 9.1 mg/dL (8.4-11.0); CHLORIDE 119 mmol/L (98-107); GLUCOSE 108 mg/dL (70-99); PHOSPHORUS 2.7 mg/dL (2.7-4.5); POTASSIUM 3.9 mmol/L (3.5-5.1); SODIUM SERUM 149 mmol/L (136-145); UREA NITROGEN, BLOOD 27 mg/dL (8-21)
[2018-05-25 07:26] LABS: BASOPHILS % (AUTO) 0.2 % (0.0-2.0); EOSINOPHILS # (AUTO) 0.2 K/uL (0.0-0.4); HEMATOCRIT 32.8 % (36-54); LYMPHOCYTES # (AUTO) 1.8 K/uL (1.0-5.5); LYMPHOCYTES % (AUTO) 21.3 % (20.5-51.5); MEAN CORPUSCULAR HEMOGLOBIN 32 pg (27-31); MEAN CORPUSCULAR HGB CONC 34 % (32-36); MEAN CORPUSCULAR VOLUME 96 fL (79.0-98.0); MONOCYTES # (AUTO) 0.6 K/uL (0.0-1.0); MONOCYTES % (AUTO) 7.1 % (1.7-9.3); NEUTROPHILS % (AUTO) 69.4 % (40.0-70.0); PLATELET COUNT (AUTO) 231 K/uL (130-430); RED BLOOD CELL COUNT(AUTO) 3.42 MIL/uL (4.2-6.2); RED CELL DISTRIBUTION WIDTH 13.1 % (9.0-15.0)
[2018-05-25 07:28] LABS: WHITE BLOOD COUNT (AUTO) 8.6 K/uL (4.8-10.8)
[2018-05-25 07:45] VITALS: BP_SYST 125
[2018-05-25] MEDS: chlorproMAZINE HCL 50 MG/ 2 ML AMP IV PRN ×2 (08:29→17:36)
[2018-05-25] MEDS: ENOXAPARIN SODIUM 60 MG/0.6 ML SYRINGE SUBCUT SCH ×2 (08:35→21:39)
[2018-05-25] MEDS: PEG 400/HYPROMELLOSE/GLYCERIN 15 ML DROPS OP SCH (09:00)
[2018-05-25] MEDS ORDERED: CITALOPRAM HYDROBROMIDE 20 MG TABLET PO ONE (10:00)
[2018-05-25] MEDS ORDERED: ASPIRIN 81 MG TABLET(ECOTRIN) PO ONE (10:00)
[2018-05-25] MEDS ORDERED: LORATADINE 10 MG TABLET PO ONE (10:00)
[2018-05-25] MEDS ORDERED: DOCUSATE SODIUM 100 MG CAPSULE PO ONE (10:00)
[2018-05-25] MEDS ORDERED: MEMANTINE HCL 5 MG TABLET PO ONE (10:00)
[2018-05-25] MEDS ORDERED: MULTIVITAMINS TAB 1 TABLET PO ONE (10:00)
[2018-05-25] MEDS ORDERED: LISINOPRIL 10 MG TABLET (PRINIVIL) PO ONE (10:00)
[2018-05-25 10:56] VITALS: BP_SYST 109
[2018-05-25] MEDS: cefTRIAXone 1 GM IVPB PREMIX 50 ML IV SCH (12:33)
[2018-05-25 15:08] VITALS: BP_SYST 144
[2018-05-25 20:12] VITALS: BP_SYST 137
[2018-05-26 01:15] VITALS: BP_SYST 116
[2018-05-26] MEDS: D5/0.45 NS 1,000 ML IV SCH ×3 (05:59→15:26)
[2018-05-26] MEDS: DILTIAZEM HCL 30 MG TABLET PO SCH ×3 (06:31→21:11)
[2018-05-26] MEDS: PANTOPRAZOLE SODIUM 40 MG TAB PO SCH (06:31)
[2018-05-26] MEDS: metroNIDAZOLE 500 mg/NS 100 ML IV SCH ×3 (06:31→21:11)
[2018-05-26 07:02] LABS: ANION GAP 8 (5-15); CALCIUM 8.8 mg/dL (8.4-11.0); CHLORIDE 115 mmol/L (98-107); CREATININE 0.91 mg/dL (0.55-1.30); GLUCOSE 110 mg/dL (70-99); POTASSIUM 3.7 mmol/L (3.5-5.1); SODIUM SERUM 147 mmol/L (136-145); UREA NITROGEN, BLOOD 20 mg/dL (8-21)
[2018-05-26 07:56] LABS: HEMATOCRIT 30.9 % (36-54); HEMOGLOBIN 10.4 g/dL (14.0-18.0); MEAN CORPUSCULAR HEMOGLOBIN 32 pg (27-31); MEAN CORPUSCULAR HGB CONC 34 % (32-36); MEAN CORPUSCULAR VOLUME 96 fL (79.0-98.0); PLATELET COUNT (AUTO) 224 K/uL (130-430); RED BLOOD CELL COUNT(AUTO) 3.21 MIL/uL (4.2-6.2); RED CELL DISTRIBUTION WIDTH 12.9 % (9.0-15.0); WHITE BLOOD COUNT (AUTO) 8.8 K/uL (4.8-10.8)
[2018-05-26 07:57] LABS: BASOPHILS % (AUTO) 0.2 % (0.0-2.0); EOSINOPHILS # (AUTO) 0.1 K/uL (0.0-0.4); EOSINOPHILS % (AUTO) 1.6 % (0.0-4.0); LYMPHOCYTES # (AUTO) 1.6 K/uL (1.0-5.5); LYMPHOCYTES % (AUTO) 18.6 % (20.5-51.5); MONOCYTES # (AUTO) 0.5 K/uL (0.0-1.0); MONOCYTES % (AUTO) 6.2 % (1.7-9.3); NEUTROPHILS # (AUTO) 6.6 K/uL (1.8-7.7); NEUTROPHILS % (AUTO) 73.4 % (40.0-70.0)
[2018-05-26 08:00] VITALS: BP_SYST 129
[2018-05-26] MEDS: chlorproMAZINE HCL 50 MG/ 2 ML AMP IV PRN (08:34)
[2018-05-26] MEDS: DOCUSATE SODIUM 100 MG CAPSULE PO SCH (08:37)
[2018-05-26] MEDS: MULTIVITAMINS TAB 1 TABLET PO SCH (08:37)
[2018-05-26] MEDS: CITALOPRAM HYDROBROMIDE 20 MG TABLET PO SCH (08:38)
[2018-05-26] MEDS: LORATADINE 10 MG TABLET PO SCH (08:39)
[2018-05-26] MEDS: ASPIRIN 81 MG TABLET(ECOTRIN) PO SCH (08:39)
[2018-05-26] MEDS: MEMANTINE HCL 5 MG TABLET PO SCH (08:39)
[2018-05-26] MEDS: LISINOPRIL 10 MG TABLET (PRINIVIL) PO SCH (08:40)
[2018-05-26] MEDS: PEG 400/HYPROMELLOSE/GLYCERIN 15 ML DROPS OP SCH (08:41)
[2018-05-26] MEDS: ENOXAPARIN SODIUM 60 MG/0.6 ML SYRINGE SUBCUT SCH ×2 (08:47→21:13)
[2018-05-26 11:27] VITALS: BP_SYST 134
[2018-05-26 12:16] VITALS: BP_SYST 112
[2018-05-26] MEDS: cefTRIAXone 1 GM IVPB PREMIX 50 ML IV SCH (14:14)
[2018-05-26 15:36] VITALS: BP_SYST 144
[2018-05-26 19:58] VITALS: BP_SYST 137
[2018-05-27 00:54] VITALS: BP_SYST 159
[2018-05-27] MEDS: D5/0.45 NS 1,000 ML IV SCH ×3 (06:42→22:01)
[2018-05-27] MEDS: metroNIDAZOLE 500 mg/NS 100 ML IV SCH ×3 (06:42→21:59)
[2018-05-27] MEDS: DILTIAZEM HCL 30 MG TABLET PO SCH ×3 (06:43→22:00)
[2018-05-27] MEDS: PANTOPRAZOLE SODIUM 40 MG TAB PO SCH (06:43)
[2018-05-27 06:56] LABS: BASOPHILS % (AUTO) 0.3 % (0.0-2.0); EOSINOPHILS # (AUTO) 0.1 K/uL (0.0-0.4); EOSINOPHILS % (AUTO) 0.6 % (0.0-4.0); HEMATOCRIT 31.6 % (36-54); HEMOGLOBIN 10.5 g/dL (14.0-18.0); LYMPHOCYTES # (AUTO) 1.4 K/uL (1.0-5.5); LYMPHOCYTES % (AUTO) 13.8 % (20.5-51.5); MEAN CORPUSCULAR HEMOGLOBIN 32 pg (27-31); MEAN CORPUSCULAR HGB CONC 33 % (32-36); MEAN CORPUSCULAR VOLUME 96 fL (79.0-98.0); MONOCYTES # (AUTO) 0.7 K/uL (0.0-1.0); MONOCYTES % (AUTO) 6.3 % (1.7-9.3); NEUTROPHILS # (AUTO) 8.1 K/uL (1.8-7.7); PLATELET COUNT (AUTO) 216 K/uL (130-430); RED BLOOD CELL COUNT(AUTO) 3.29 MIL/uL (4.2-6.2); WHITE BLOOD COUNT (AUTO) 10.3 K/uL (4.8-10.8)
[2018-05-27 07:07] LABS: ANION GAP 10 (5-15); CALCIUM 8.9 mg/dL (8.4-11.0); CHLORIDE 113 mmol/L (98-107); CREATININE 0.88 mg/dL (0.55-1.30); GLUCOSE 117 mg/dL (70-99); POTASSIUM 3.7 mmol/L (3.5-5.1); SODIUM SERUM 145 mmol/L (136-145); UREA NITROGEN, BLOOD 16 mg/dL (8-21)
[2018-05-27 08:00] VITALS: BP_SYST 164
[2018-05-27] MEDS: CITALOPRAM HYDROBROMIDE 20 MG TABLET PO SCH (08:52)
[2018-05-27] MEDS: MULTIVITAMINS TAB 1 TABLET PO SCH (08:52)
[2018-05-27] MEDS: ASPIRIN 81 MG TABLET(ECOTRIN) PO SCH (08:52)
[2018-05-27] MEDS: LISINOPRIL 10 MG TABLET (PRINIVIL) PO SCH (08:52)
[2018-05-27] MEDS: MEMANTINE HCL 5 MG TABLET PO SCH (08:53)
[2018-05-27] MEDS: PEG 400/HYPROMELLOSE/GLYCERIN 15 ML DROPS OP SCH (08:53)
[2018-05-27] MEDS: LORATADINE 10 MG TABLET PO SCH (08:53)
[2018-05-27] MEDS: DOCUSATE SODIUM 100 MG CAPSULE PO SCH (08:53)
[2018-05-27] MEDS: ENOXAPARIN SODIUM 60 MG/0.6 ML SYRINGE SUBCUT SCH ×2 (08:54→22:02)
[2018-05-27 11:19] VITALS: BP_SYST 148
[2018-05-27] MEDS: FLUCONAZOLE 200 mg/ NS 100 ML IV SCH (11:25)
[2018-05-27] MEDS: cefTRIAXone 1 GM IVPB PREMIX 50 ML IV SCH (13:49)
[2018-05-27] MEDS: chlorproMAZINE HCL 50 MG/ 2 ML AMP IV PRN (14:32)
[2018-05-27 15:36] VITALS: BP_SYST 157
[2018-05-27] MEDS ORDERED: TAMSULOSIN HCL 0.4 MG CAP PO ONE (16:00)
[2018-05-27 20:17] VITALS: BP_SYST 143
[2018-05-28 00:40] VITALS: BP_SYST 112
[2018-05-28] MEDS: PANTOPRAZOLE SODIUM 40 MG TAB PO SCH (06:00)
[2018-05-28] MEDS: DILTIAZEM HCL 30 MG TABLET PO SCH ×3 (06:00→22:27)
[2018-05-28] MEDS: metroNIDAZOLE 500 mg/NS 100 ML IV SCH ×3 (06:34→22:28)
[2018-05-28] MEDS: D5/0.45 NS 1,000 ML IV SCH ×3 (06:34→23:43)
[2018-05-28 07:57] VITALS: BP_SYST 158
[2018-05-28] MEDS: MEMANTINE HCL 5 MG TABLET PO SCH (09:25)
[2018-05-28] MEDS: TAMSULOSIN HCL 0.4 MG CAP PO SCH (09:25)
[2018-05-28] MEDS: MULTIVITAMINS TAB 1 TABLET PO SCH (09:25)
[2018-05-28] MEDS: LORATADINE 10 MG TABLET PO SCH (09:25)
[2018-05-28] MEDS: DOCUSATE SODIUM 100 MG CAPSULE PO SCH (09:25)
[2018-05-28] MEDS: ASPIRIN 81 MG TABLET(ECOTRIN) PO SCH (09:25)
[2018-05-28] MEDS: LISINOPRIL 10 MG TABLET (PRINIVIL) PO SCH (09:25)
[2018-05-28] MEDS: CITALOPRAM HYDROBROMIDE 20 MG TABLET PO SCH (09:26)
[2018-05-28] MEDS: PEG 400/HYPROMELLOSE/GLYCERIN 15 ML DROPS OP SCH (09:26)
[2018-05-28] MEDS: ENOXAPARIN SODIUM 60 MG/0.6 ML SYRINGE SUBCUT SCH ×2 (09:27→21:04)
[2018-05-28] MEDS: FLUCONAZOLE 200 mg/ NS 100 ML IV SCH (10:21)
[2018-05-28 12:26] VITALS: BP_SYST 121
[2018-05-28] MEDS: cefTRIAXone 1 GM IVPB PREMIX 50 ML IV SCH (12:33)
[2018-05-28 16:16] VITALS: BP_SYST 132
[2018-05-28 20:00] VITALS: BP_SYST 120
[2018-05-29 00:45] VITALS: BP_SYST 117
[2018-05-29] MEDS: metroNIDAZOLE 500 mg/NS 100 ML IV SCH ×2 (06:07→15:19)
[2018-05-29] MEDS: PANTOPRAZOLE SODIUM 40 MG TAB PO SCH (06:07)
[2018-05-29] MEDS: DILTIAZEM HCL 30 MG TABLET PO SCH ×2 (06:08→14:14)
[2018-05-29 08:27] VITALS: BP_SYST 123
[2018-05-29] MEDS: PEG 400/HYPROMELLOSE/GLYCERIN 15 ML DROPS OP SCH (08:34)
[2018-05-29] MEDS: ENOXAPARIN SODIUM 60 MG/0.6 ML SYRINGE SUBCUT SCH (08:34)
[2018-05-29] MEDS: CITALOPRAM HYDROBROMIDE 20 MG TABLET PO SCH (12:19)
[2018-05-29] MEDS: FLUCONAZOLE 200 mg/ NS 100 ML IV SCH (12:19)
[2018-05-29] MEDS: MULTIVITAMINS TAB 1 TABLET PO SCH (12:19)
[2018-05-29] MEDS: ASPIRIN 81 MG TABLET(ECOTRIN) PO SCH (12:19)
[2018-05-29] MEDS: LORATADINE 10 MG TABLET PO SCH (12:19)
[2018-05-29] MEDS: MEMANTINE HCL 5 MG TABLET PO SCH (12:19)
[2018-05-29] MEDS: LISINOPRIL 10 MG TABLET (PRINIVIL) PO SCH (12:20)
[2018-05-29] MEDS: TAMSULOSIN HCL 0.4 MG CAP PO SCH (12:21)
[2018-05-29] MEDS: DOCUSATE SODIUM 100 MG CAPSULE PO SCH (12:21)
[2018-05-29] MEDS: chlorproMAZINE HCL 50 MG/ 2 ML AMP IV PRN (12:21)
[2018-05-29] MEDS: D5/0.45 NS 1,000 ML IV SCH (12:36)
[2018-05-29] MEDS: cefTRIAXone 1 GM IVPB PREMIX 50 ML IV SCH (14:08)
[2018-05-29 15:51] VITALS: BP_SYST 145
[2018-05-29 19:24] VITALS: BP_SYST 118
[2018-05-29 20:00] VITALS: BP_SYST 118
== END 2018-05-29 21:02 | DRG 177 ==
LOC: SED 10:50 → STU 13:30 → SIC 16:22 → STU 05-24 19:24 → SMU 05-28 21:48
PROVIDERS: ADMIT Family Medicine; ATTEND Family Medicine
DX: J69.0 Pneumonitis due to inhalation of food and vomit (principal); G93.41 Metabolic encephalopathy; N17.9 Acute kidney failure, unspecified; D68.59 Other primary thrombophilia; E87.2 Acidosis; R47.01 Aphasia; E87.0 Hyperosmolality and hypernatremia; E86.0 Dehydration; N40.0 Benign prostatic hyperplasia without lower urinary tract symptoms; L89.629 Pressure ulcer of left heel, unspecified stage; K56.41 Fecal impaction; F03.90 Unspecified dementia, unspecified severity, without behavioral disturbance, psychotic disturbance, mood disturbance, and anxiety; I10 Essential (primary) hypertension; I48.0 Paroxysmal atrial fibrillation; K21.9 Gastro-esophageal reflux disease without esophagitis; K82.8 Other specified diseases of gallbladder; R13.10 Dysphagia, unspecified; E87.8 Other disorders of electrolyte and fluid balance, not elsewhere classified; F32.9 Major depressive disorder, single episode, unspecified; Z79.899 Other long term (current) drug therapy; Z79.82 Long term (current) use of aspirin; Z86.73 Personal history of transient ischemic attack (TIA), and cerebral infarction without residual deficits
CPT/HCPCS: 36415; 70450-TC; 71045; 74018; 76700-TC; 78226; 80048; 80053; 80307; 81003; 82550-TC; 82553-TC; 83605; 83735-TC; 83880; 84100-TC; 84484; 85025; 85610-TC; 85730-TC; 87040-TC; 87081; 92610-GN; 93005; 93306; 95816; 96374; 97110-GP; 97112-GP; 97530-GP; 99285; A9537; G0378; G0481; J0696; J1160; J1200; J1450; J1650; J3230; J3370; J3490; J7030; J7060

== ENCOUNTER 2018-12-02 14:07 | Inpatient (IN) | payer OTHER, MEDICAID ==
[~2018-12-02] VITALS: Ht 162.6 cm; Wt 54.9 kg
[2018-12-02 16:39] VITALS: BP_SYST 123
[2018-12-02] MEDS ORDERED: IPRATROPIUM/ALBUTEROL SULFATE 3 ML AMPUL.NEB (DUONEB) INH PRN (17:30)
[2018-12-02 17:42] VITALS: BP_SYST 123
[2018-12-02] MEDS: CARBIDOPA/LEVODOPA 25/100 MG TABLET PO SCH (18:00)
--- NOTE | 2018-12-02 18:00 | NUR ---
Note Report was received from [place] STEEL DETAILER - Gia at 1500 . Pt arrived to floor at 1610 via gurney. Pt was assisted to air loss mattress bed by the 2 EMT and staff. Pt's wound photos were taken by Susna - patricia AVILEZ. Coccyx wound unstageable. Pt's son Lam and pt's arrived on floor and at pt's bedside. Dr Anat Weaver was called for admit orders. Medications were put into [employer]. Tele unit attached to pt at this time. Report was given to Jayla AVILEZ for continuation of care at this time. Pt resting in bed with son and at bedside at this time. Pt next to nurses' station for close observation for needs and care. Call light within reach.
--- NOTE | 2018-12-02 18:00 | NUR ---
TO MST. RECEIVED PT IN ROOM 132-B, NON VERBAL, WITH FAMILY AT BEDSIDE, PT HAS O2 VIA NASAL CANNULA AT 3L, SKIN COLOR GOOD, LEFT HAND IV INFILTRATED, AND D/CD, PT HAS ANOTHER IV ACCESS INTO RIGHT A/C, TADEO CATHETER IN PLACE, RECTAL TUBE INTACT.
[2018-12-02] MEDS: 0.45% NACL 1,000 ML IV SCH (18:41)
[2018-12-02] MEDS: ALBUTEROL SULFATE 0.083% 2.5 MG/3 ML VIAL.NEB INH SCH (19:50)
[2018-12-02 20:00] VITALS: BP_SYST 107
--- NOTE | 2018-12-02 20:00 | NUR ---
NOLAN KIRKLAND REGARDING PATIENT FOR ORDERS. I SPOKE WITH LV
--- NOTE | 2018-12-02 20:15 | NUR ---
DR RAMOS RETURNED CALL. ORDER FOR MERREM CLARIFIED. NOTIFIED THAT PT IS ALLERGIC TO ROCEPHIN. ORDERED OKAY TO GIVE MEROPENEM EVEN IF THERE IS A 20% CROSS SENSITIVITY. ORDER CARRIED OUT. PT APHASIC. SEEMS LETHARGIC. DOES NOT FOLLOW COMMANDS. ON O2 AT 3L/MIN/NC. TADEO CATH PATENT DRAINING CLOUDY VALERIY URINE TO GRAVITY. RECTAL TUBE IN PLACE. HEEL LIFT BOOTS IN PLACE.
[2018-12-02] MEDS ORDERED: COMMUNICATION ORDER XX ONE (20:30)
[2018-12-02] MEDS: MEROPENEM 1 GM in NS 100 ML IV SCH (21:18)
[2018-12-02] MEDS: ENOXAPARIN SODIUM 30 MG/0.3 ML SYRINGE SUBCUT SCH (21:19)
[2018-12-02] MEDS: OXYBUTYNIN CHLORIDE 5 MG TABLET PO SCH ×2 (21:20→21:29)
--- NOTE | 2018-12-02 22:00 | NUR ---
PO MEDS HELD AT THIS TIME, PT HAS DIFFICULTY SWALLOWING. REPOSITIONED.
--- NOTE | 2018-12-02 23:30 | NUR ---
OPENING NOTE RECEIVED CARE OF PT AND SBAR REPORT FROM RAGHAV BLAKE. PT RESTING IN BED, BREATHING IS UNLABORED TO O2 VIA NC AT 3L. NO S/S OF ACUTE DISTRESS. NO S/S OF PAIN OR DISCOMFORT. IVF ARE INFUSING AT ORDERED RATE. TADEO CATHETER AND RECTAL TUBE ARE IN PLACE AND DRAINING WELL. SAFETY PRECAUTIONS ARE IN PLACE. WILL MONITOR.
--- NOTE | 2018-12-03 00:02 | NUR ---
PAGED I PAGED DR. RICHARD Crockett @ [phone] I SPOKE WITH SELIN VIZCAINO THIS IS THE FIRST CALL
--- NOTE | 2018-12-03 00:24 | NUR ---
PAGED I PAGED DR. RICHARD Crockett @ [phone] SPOKE WITH SELIN VIZCAINO THIS IS THE SECOND CALL
--- NOTE | 2018-12-03 00:30 | NUR ---
REPOSITIONED PT REPOSITIONED FOR COMFORT WITH PILLOW SUPPORT. TADEO CATHETER AND RECTAL TUBE ARE IN PLACE AND DRAINING WELL. NO S/S OF ACUTE DISTRESS. PT BREATHING IS UNLABORED TO O2 VIA NC AT 3L. SAFETY PRECAUTIONS ARE IN PLACE. WILL MONITOR.
[2018-12-03] MEDS: ALBUTEROL SULFATE 0.083% 2.5 MG/3 ML VIAL.NEB INH SCH ×4 (01:00→20:04)
[2018-12-03] MEDS: CARBIDOPA/LEVODOPA 25/100 MG TABLET PO SCH ×4 (01:01→18:11)
--- NOTE | 2018-12-03 01:01 | NUR ---
DUE MED GIVEN PT GIVEN SINEMET 25/100 MG PO. MEDICATION EXPLAINED TO PT. MEDICATION WAS CRUSHED WITH APPLESAUCE. PT ABLE TO SWALLOW MEDICATION, NO COUGHING OR DISTRESS NOTED.
[2018-12-03] MEDS: 0.45% NACL 1,000 ML IV SCH ×4 (01:06→20:32)
[2018-12-03 02:04] VITALS: BP_SYST 114
--- NOTE | 2018-12-03 03:45 | NUR ---
UA/MRSA COLLECTION URINE COLLECTED AND MRSA OF THE NARES COLLECTED AND TAKEN TO LAB.
[2018-12-03 03:51] LABS: BILIRUBIN,URINE NEGATIVE (NEGATIVE); BLOOD, URINE 3+ (NEGATIVE); CLARITY/URINE SL HAZY (CLEAR); COLOR,URINE YELLOW (YELLOW); GLUCOSE,URINE NEGATIVE (NEGATIVE); KETONES,URINE NEGATIVE (NEGATIVE); LEUKOCYTE ESTERASE ,URINE 1+ (NEGATIVE); NITRITE, URINE NEGATIVE (NEGATIVE); PH,URINE 5.5 (5.0-8.0); PROTEIN URINE NEGATIVE (NEGATIVE); UROBILINOGEN,URINE 0.2 (0.2-1.0)
[2018-12-03 04:06] LABS: BACTERIA,URINE FEW /HPF (None Seen)
[2018-12-03 04:07] LABS: FINE GRANULAR CASTS,URINE 0-10 /LPF (None Seen); HYALINE CASTS, URINE 0-10 /LPF (None Seen)
[2018-12-03] MEDS: LEVOTHYROXINE SODIUM 0.1 MG TABLET PO SCH (06:20)
[2018-12-03] MEDS: OXYBUTYNIN CHLORIDE 5 MG TABLET PO SCH ×3 (06:20→22:06)
--- NOTE | 2018-12-03 06:28 | NUR ---
DUE MEDS GIVEN CRUSHED WITH APPLESAUCE. PT TOLERATED WELL.
--- NOTE | 2018-12-03 06:56 | NUR ---
Nutrition Update Jc Scale 14 noted. Pt admitted for Sepsis, Dementia, H/O Stroke Diet: pureed BMI: 20.8 kg/m2 RD to follow per nutrition care standards.
--- NOTE | 2018-12-03 06:56 | NUR ---
CLOSING NOTE PT RESTING IN BED, BREATHING IS UNLABORED, IVF ARE RUNNING AT ORDERED RATE. NO S/S OF ACUTE DISTRESS. NO SIGN OF PAIN OR DISCOMFORT. SAFETY PRECAUTIONS REMAIN IN PLACE. ALL NEEDS MET DURING SHIFT. WILL CONTINUE TO MONITOR UNTIL PT CARE IS ENDORSED TO DAY SHIFT RN.
--- NOTE | 2018-12-03 07:32 | NUR ---
OPENING NOTES RECEIVED PATIENT FROM HAND CLERICAL VERIFIER. PATIENT IS LAYING IN BED AWAKE AND NON-VERBAL. IV IS PATENT WITH NO SIGNS OF INFILTRATION RUNNING FLUIDS ORDERED. TADEO AND RECTAL TUBE DRAINING BY GRAVITY. PATIENT IS ON AN AIR MATTRESS. BED LOCKED AND IN LOWEST POSITION WITH CALL LIGHT IN REACH. SAFETY AND FALL PRECAUTIONS IN PLACE. WILL CONTINUE TO MONITOR FOR ANY CHANGES. Addendum: 12/03/18 at 1658 by Samantha Dewey RN FLEXI SEAL IN PLACE, NO LEAKAGE NOTED, DRAINING VIA GRAVITY.
[2018-12-03 09:06] VITALS: BP_SYST 129
[2018-12-03] MEDS: MEMANTINE HCL 5 MG TABLET PO SCH (09:14)
[2018-12-03] MEDS: ASPIRIN 81 MG TABLET(ECOTRIN) PO SCH (09:14)
[2018-12-03] MEDS: MEROPENEM 1 GM in NS 100 ML IV SCH ×2 (09:14→20:32)
[2018-12-03] MEDS: FAMOTIDINE PF 20 MG/2 ML VIAL IVP SCH (09:14)
[2018-12-03] MEDS: THEOPHYLLINE ANHYDROUS 200 MG CAP.ER.24H PO SCH (09:25)
[2018-12-03 11:02] LABS: BASOPHILS % (AUTO) 0.5 % (0.0-2.0); EOSINOPHILS % (AUTO) 0.5 % (0.0-4.0); HEMATOCRIT 29.9 % (36-54); HEMOGLOBIN 9.8 g/dL (14.0-18.0); LYMPHOCYTES # (AUTO) 1.5 K/uL (1.0-5.5); LYMPHOCYTES % (AUTO) 18.6 % (20.5-51.5); MEAN CORPUSCULAR HEMOGLOBIN 31 pg (27-31); MEAN CORPUSCULAR HGB CONC 33 % (32-36); MEAN CORPUSCULAR VOLUME 95 fL (79.0-98.0); MONOCYTES # (AUTO) 0.6 K/uL (0.0-1.0); MONOCYTES % (AUTO) 7.4 % (1.7-9.3); NEUTROPHILS # (AUTO) 5.9 K/uL (1.8-7.7); PLATELET COUNT (AUTO) 250 K/uL (130-430); RED BLOOD CELL COUNT(AUTO) 3.14 MIL/uL (4.2-6.2); RED CELL DISTRIBUTION WIDTH 15.7 % (9.0-15.0); WHITE BLOOD COUNT (AUTO) 8.1 K/uL (4.8-10.8)
[2018-12-03 11:09] LABS: ANION GAP 8 (5-15); CALCIUM 9.6 mg/dL (8.4-11.0); CHLORIDE 119 mmol/L (98-107); CREATININE 1.08 mg/dL (0.55-1.30); GLUCOSE 97 mg/dL (70-99); POTASSIUM 3.4 mmol/L (3.5-5.1); SODIUM SERUM 148 mmol/L (136-145); UREA NITROGEN, BLOOD 30 mg/dL (8-21)
--- NOTE | 2018-12-03 11:47 | NUR ---
MD ROUNDS DR RICHARD ANDERSON, AWARE OF PATIENT'S CONDITION, SPOKE WITH SON OVER THE PHONE AND DISCUSSED POC.
[2018-12-03] MEDS ORDERED: POTASSIUM CHLORIDE 20 MEQ/PKT PACKET PO ONE (12:00)
--- NOTE | 2018-12-03 12:34 | NUR ---
Loli Nava Called; left voicemail for Chanel informing her of consult. [phone]
[2018-12-03 12:46] VITALS: BP_SYST 133
--- NOTE | 2018-12-03 13:27 | NUR ---
ROUNDS PATIENT IS ALERT IN BED WITH THE TELEVISION ON. NO SIGNS AND SYMPTOMS OF DISTRESS NOTED. BREATHING IS UNLABORED WITH SYMMETRICAL CHEST EXPANSION. IV IS PATENT WITH NO SIGNS OF INFILTRATION AND RUNNING FLUIDS PER DOCTORS ORDERS. OXYGEN WAS REAPPLIED TO PATIENT ON 2 L. SAFETY AND FALL PRECAUTIONS ARE IN PLACE. BED LOCKED IN LOWEST POSITION AND CALL LIGHT IN IN REACH. WILL CONTINUE TO MONITOR FOR ANY CHANGES. Addendum: 12/03/18 at 1333 by Iraida Villegas RN PATIENT IS AWAKE NOT ALERT.
--- NOTE | 2018-12-03 14:05 | NUR ---
Calorie Counting RD was notified about MD order for calorie counting. RD provided instructions to RAGHAV Singh on how to record % food intake. RD to collect food intake record tomorrow 12/04/18.
--- NOTE | 2018-12-03 14:30 | NUR ---
SWALLOW EVALUATION ROSALIO SPEECH THERAPIST HERE TO EVALUATE PT.
--- NOTE | 2018-12-03 14:56 | NUR ---
S.T. SWALLOW EVAL SWALLOW EVAL COMPLETED. PT PRESENTS W/ SEV ORAL AND MOD PHARYNGEAL DYSPHAGIA W/ DECREASED INTEREST FOR P.O., SIGNIFICANT HOLDING OF BOLUS IN ORAL CAVITY W/ DELAYED TRANSFER, AND DELAYED SWALLOW. NO S/S OF ASPIRATION ON THICK LIQUIDS AND PUREE. PT IS AT HIGH RISK FOR ASPIRATION, MALNUTRITION, AND DEHYDRATION D/T POOR BOLUS TRANSFER. REC: PUREE DIET W/ NECTAR THICK LIQUIDS. PROCEED W/ VFSS TOMORROW ORDERED. NURSE ROSANNA NOTIFIED. [id number] CL [id number] CL G8998 CL NOMS LEVEL 3
--- NOTE | 2018-12-03 15:31 | NUR ---
ROUNDS PATIENT IS AWAKE SITTING UP IN BED WITH FAMILY MEMBER AT BEDSIDE. IV PATENT WITH NO SIGNS OF INFILTRATION AND RUNNING FLUIDS PER DOCTORS ORDERS. BREATHING IS UNLABORED AND CHEST EXPANSION IS SYMMETRICAL. NO SIGNS AND SYMPTOMS OF DISTRESS NOTED. SAFETY, ASPIRATION AND FALL PRECAUTIONS ARE IN PLACE. BED LOCKED IN LOWEST POSITION AND CALL LIGHT IN REACH. WILL CONTINUE TO MONITOR PATIENT FOR ANY CHANGES.
[2018-12-03 16:12] VITALS: BP_SYST 105
--- NOTE | 2018-12-03 16:49 | NUR ---
Wound Evaluation: Wound Consult received from Dr. Jonathan Weaver. Thank you, Dr. Weaver, for the consult. Patient received in a [place] Bed with an IsoFlex OLGA mattress with low air loss therapy initiated, awake, alert, nonverbal, non-responsive to verbal commands. Patient is unable to turn in bed independently. Jc Score is a 14. Past Medical History: COPD, BPH, Neurogenic Bladder, Hypertension, Hypothyroidism, indwelling Bright catheter, recent history of UTI, Dementia, Sacral Decubitus Ulcer, Aspiration Pneumonia. Recent Labs: WBC 8.1, RBC 3.14, hemoglobin 9.8, hematocrit 29.9, sodium 148, potassium 3.4, chloride 119, BUN 30, creatinine 1.08. Microbiology: Urine culture results in progress. MRSA screen results in progress. Blood culture results 2 in progress. Intrinsic factors that delay wound healing: COPD. Extrinsic factors that delay wound healing: Immobility. Wound Assessment: 1. Sacral-Coccygeal area: Unstageable pressure ulcer, present on admission. Wound bed has 95% yellow tissue, 5% pink tissue. No odor, no drainage. Periwound pink. Surrounding tissue has pink scar tissue and dark discoloration. Wound measures 1.0 cm x 0.5 cm. Recommend: Cleanse involved areas with normal saline. Pat dry. Apply moisture barrier cream to periwound areas. Apply Venelex ointment to wound beds. Cover site with Sacral foam dressing. Perform wound care daily, and as needed for dressing soiling or dislodgment. 2. Left Lateral Heel: Scar tissue from a healed stage IV pressure ulcer, present on admission. Site has purple discoloration and erythema. No odor, no drainage. 3. Right Heel: Blanchable erythema, present on admission. Recommend: Elevate, off-load, and float bilateral heels with one pillow lengthwise under each extremity at all times. Do not allow any portion of feet or heels to touch bed, other body parts, or other surfaces at any time. Maintain feet in offloading boots. Recommend: Reposition patient side to side only every two hours with pillow support. Elevate, off-load, and float bilateral heels with one pillow lengthwise under each extremity at all times. Do not allow any portion of feet or heels to touch bed, other body parts, or other surfaces at any time. Maintain feet in offloading boots. Offload pressure areas with pillows for pressure re-distribution. Perform skin care and monitor skin integrity q shift. Use moisture barrier cream on moisture susceptible areas qid and as needed for soiling. Maintain patient on a low air-loss mattress.
--- NOTE | 2018-12-03 17:00 | NUR ---
ROUNDS PATIENT IN BED WITH EYES CLOSED. AT BEDSIDE. BREATHING UNLABORED WITH SYMMETRICAL CHEST EXPANSION. IV PATENT WITH NO SIGNS OF INFILTRATION AND RUNNING FLUIDS PER DOCTORS ORDER. BED LOCKED IN LOWEST POSITION AND CALL LIGHT WITHIN REACH. FALL, SAFETY, AND ASPIRATION PRECAUTIONS IN PLACE. WILL CONTINUE TO MONITOR FOR ANY CHANGES.
--- NOTE | 2018-12-03 18:34 | NUR ---
CLOSING NOTE PATIENT IS GETTING FED UPRIGHT IN BED BY HIS . NO SIGNS OR SYMPTOMS OF DISTRESS NOTED. BREATHING IS UNLABORED AND CHEST EXPANSION IS SYMMETRICAL. IV PATENT WITH NO SIGNS OF INFILTRATION AND RUNNING IV FLUIDS ORDERED BY DOCTOR. BED IS LOCKED IN LOWEST POSITION AND CALL LIGHT WITHIN REACH. FALL, SAFETY AND ASPIRATION PRECAUTIONS WERE FOLLOWED THROUGHOUT THE SHIFT. WILL ENDORSE PATIENT TO THE ONCOMING NURSE.
--- NOTE | 2018-12-03 19:20 | NUR ---
OPENING NOTE RECEIVED CARE OF PT AND SBAR REPORT. PT RESTING IN BED WITH FAMILY AT BEDSIDE, PT'S IS FEEDING HIM DINNER. BREATHING IS UNLABORED TO O2 VIA NC AT 2L. NO S/S OF ACUTE DISTRESS. NO S/S OF PAIN OR DISCOMFORT. IVF ARE INFUSING AT ORDERED RATE. TADEO CATHETER AND RECTAL TUBE ARE IN PLACE AND DRAINING WELL. SAFETY PRECAUTIONS ARE IN PLACE. WILL MONITOR.
[2018-12-03 20:00] VITALS: BP_SYST 154
--- NOTE | 2018-12-03 20:00 | NUR ---
COOLING MEASURES PT TEMPERATURE ELEVATED. COOLING MEASURES IMPLEMENTED. SHEETS TAKEN OFF PT, ICE PACKS APPLIED. SAFETY MEASURES OBSERVED.
[2018-12-03] MEDS: ENOXAPARIN SODIUM 30 MG/0.3 ML SYRINGE SUBCUT SCH (20:35)
--- NOTE | 2018-12-03 20:35 | NUR ---
MEDICATION PASS PT GIVEN SCHEDULED LOVENOX AND MERREM MEDICATIONS. MEDICATIONS EXPLAINED TO PT AND FAMILY. IVF BAG ALSO CHANGED. NO S/S OF ACUTE DISTRESS. WILL MONITOR.
--- NOTE | 2018-12-03 22:06 | NUR ---
SCHEDULED MEDICATION PT GIVEN SCHEDULED DITROPAN. MEDICATION CRUSHED AND GIVEN WITH MASHED POTATOES. PT TOLERATED WELL. NO S/S OF ACUTE DISTRESS. SAFETY AND ASPIRATION PRECAUTIONS ARE IN PLACE. WILL MONITOR.
--- NOTE | 2018-12-03 23:00 | NUR ---
RN ROUNDS: PT PROVIDED WITH FRESH LINEN AND REPOSITIONED WITH PILLOW SUPPORT WITH ASSISTANCE FROM MARIN FLORES. NO S/S OF ACUTE DISTRESS, BREATHING IS UNLABORED. SAFETY AND ASPIRATION PRECAUTIONS MAINTAINED. WILL MONITOR.
[2018-12-04] MEDS: CARBIDOPA/LEVODOPA 25/100 MG TABLET PO SCH ×4 (00:19→18:00)
[2018-12-04] MEDS: ALBUTEROL SULFATE 0.083% 2.5 MG/3 ML VIAL.NEB INH SCH ×4 (01:04→20:15)
--- NOTE | 2018-12-04 01:11 | NUR ---
PAGED I PAGED DR. RICHARD Crockett @ [phone] I SPOKE WITH SELIN VIZCAINO THIS IS THE THIRD CALL DR. RICHARD Crockett CALLED BACK @ [phone]
--- NOTE | 2018-12-04 01:16 | NUR ---
SPOKE TO DR. RAMOS REGARDING PT'S TEMPERATURE OF 100.5 DEGREES FAHRENHEIT. STATED THAT THERE WAS NO NEED TO DO ANYTHING AT THIS POINT. WILL MONITOR.
[2018-12-04 01:30] VITALS: BP_SYST 126
--- NOTE | 2018-12-04 03:15 | NUR ---
RN ROUNDS: PT REPOSITIONED FOR COMFORT WITH PILLOW SUPPORT. TADEO CATHETER AND RECTAL TUBE ARE IN PLACE AND DRAINING WELL. NO S/S OF ACUTE DISTRESS. PT BREATHING IS UNLABORED TO O2 VIA NC AT 2 L. SAFETY PRECAUTIONS ARE IN PLACE. WILL MONITOR.
[2018-12-04 06:02] LABS: ALANINE AMINOTRANSFERASE 13 U/L (12-78); ALBUMIN 2.1 g/dL (3.4-4.8); ANION GAP 9 (5-15); ASPARTATE AMINOTRANSFERASE 20 U/L (10-37); CHLORIDE 115 mmol/L (98-107); CREATININE 1.06 mg/dL (0.55-1.30); GLUCOSE 99 mg/dL (70-99); POTASSIUM 3.9 mmol/L (3.5-5.1); SODIUM SERUM 147 mmol/L (136-145); TOTAL BILIRUBIN 0.1 mg/dL (0.0-1.0); UREA NITROGEN, BLOOD 23 mg/dL (8-21)
[2018-12-04] MEDS: OXYBUTYNIN CHLORIDE 5 MG TABLET PO SCH ×3 (06:22→21:14)
[2018-12-04] MEDS: LEVOTHYROXINE SODIUM 0.1 MG TABLET PO SCH (06:22)
--- NOTE | 2018-12-04 06:22 | NUR ---
MEDICATION PASS DUE MEDS GIVEN CRUSHED WITH APPLESAUCE. PT TOOK WITH NO PROBLEM.
[2018-12-04 06:32] LABS: BASOPHILS % (AUTO) 0.5 % (0.0-2.0); EOSINOPHILS # (AUTO) 0.1 K/uL (0.0-0.4); EOSINOPHILS % (AUTO) 0.7 % (0.0-4.0); HEMATOCRIT 26.7 % (36-54); HEMOGLOBIN 8.8 g/dL (14.0-18.0); LYMPHOCYTES % (AUTO) 26.1 % (20.5-51.5); MEAN CORPUSCULAR HEMOGLOBIN 31 pg (27-31); MEAN CORPUSCULAR HGB CONC 33 % (32-36); MEAN CORPUSCULAR VOLUME 94 fL (79.0-98.0); MONOCYTES # (AUTO) 0.7 K/uL (0.0-1.0); NEUTROPHILS # (AUTO) 4.9 K/uL (1.8-7.7); NEUTROPHILS % (AUTO) 63.7 % (40.0-70.0); PLATELET COUNT (AUTO) 236 K/uL (130-430); RED BLOOD CELL COUNT(AUTO) 2.84 MIL/uL (4.2-6.2); RED CELL DISTRIBUTION WIDTH 15.1 % (9.0-15.0); WHITE BLOOD COUNT (AUTO) 7.7 K/uL (4.8-10.8)
[2018-12-04 08:00] VITALS: BP_SYST 124
--- NOTE | 2018-12-04 08:00 | NUR ---
OPENING NOTES RECEIVED PATIENT FROM DRY CLEANING ATTENDANT NURSE. PATIENT IS SLEEPING UPRIGHT IN BED. NO SIGNS AND SYMPTOMS OF DISTRESS NOTED. BREATHING IS UNLABORED AND CHEST EXPANSION IS SYMMETRICAL. IV IS PATENT WITH NO SIGNS OF INFILTRATION AND RUNNING FLUIDS PER DOCTORS ORDERS. OXYGEN IS RUNNING AT 2L ON NASAL CANNULA. FALL, SAFETY, AND ASPIRATION PRECAUTIONS ARE IN PLACE. BED IS LOCKED IN LOWEST POSITION WITH CALL LIGHT IN REACH. WILL CONTINUE TO MONITOR FOR ANY CHANGES.
[2018-12-04] MEDS: BALSAM PERU/CASTOR OIL 60 GM OINT...G. TP SCH (08:47)
[2018-12-04] MEDS: THEOPHYLLINE ANHYDROUS 200 MG CAP.ER.24H PO SCH (08:48)
[2018-12-04] MEDS: FAMOTIDINE PF 20 MG/2 ML VIAL IVP SCH (08:48)
[2018-12-04] MEDS: ASPIRIN 81 MG TABLET(ECOTRIN) PO SCH (08:49)
[2018-12-04] MEDS: MEROPENEM 1 GM in NS 100 ML IV SCH ×2 (08:49→22:02)
[2018-12-04] MEDS: MEMANTINE HCL 5 MG TABLET PO SCH (08:49)
--- NOTE | 2018-12-04 10:00 | NUR ---
ROUNDS: PATIENT IS SITTING UP IN BED AWAKE. IV IS PATENT WITH NO SIGNS OF INFILTRATION AND FLUIDS RUNNING PER DOCTORS ORDERS. NO SIGNS AND SYMPTOMS OF DISTRESS NOTED. FALL, SAFETY, AND ASPIRATION PRECAUTIONS ARE IN PLACE. BED LOCKED IN LOWEST LEVEL WITH CALL LIGHT IN REACH. WILL CONTINUE TO MONITOR.
--- NOTE | 2018-12-04 11:51 | NUR ---
Dietitian Recommendations *Recommend continuing Pureed diet w/ NTL per ST rec. *Recommend adding Amadeo BID for wound healing. (Modular will provide additional 160 kcal and 5 gm protein daily). *Recommend Megace to stimulate appetite. *If PO intake does not improve by next RD visit, please consider a supplemental nutrition support. Please see Nutritional Assessment for details. [facility], RD
--- NOTE | 2018-12-04 12:00 | NUR ---
ROUNDS: PATIENT IS LYING ASLEEP IN BED. BREATHING IS UNLABORED AND CHEST EXPANSION IS SYMMETRICAL. NO DISTRESS NOTED. IV PATENT WITH NO SIGNS OF INFILTRATION AND RUNNING FLUIDS PER DOCTORS ORDERS. FALL, SAFETY, AND ASPIRATION PRECAUTIONS ARE IN PLACE. BED LOCKED IN LOWEST POSITION WITH CALL LIGHT IN REACH. WILL CONTINUE TO MONITOR.
[2018-12-04 12:45] VITALS: BP_SYST 102
[2018-12-04] MEDS: 0.45% NACL 1,000 ML IV SCH ×3 (12:48→22:02)
[2018-12-04] MEDS ORDERED: BARIUM SULFATE 135 ML SUSP.RECON (E-Z-HD) PO ONE (13:18)
--- NOTE | 2018-12-04 14:00 | NUR ---
ROUNDS: PATIENT IS AWAKE SITTING UP IN BED WITH FAMILY AT BEDSIDE. IV IS PATENT WITH NO SIGNS OF INFILTRATION AND RUNNING FLUIDS ORDERED PER DOCTOR. BREATHING IS UNLABORED AND CHEST EXPANSION IS SYMMETRICAL. NO DISTRESS NOTED. FALL, SAFETY, AND ASPIRATION PRECAUTIONS ARE IN PLACE. BED LOCKED IN LOWEST POSITION WITH CALL LIGHT IN REACH. WILL CONTINUE TO MONITOR FOR ANY CHANGES.
--- NOTE | 2018-12-04 14:44 | NUR ---
S.T. VFSS VIDEO SWALLOW STUDY COMPLETED. SON PRESENT. PT PRESENTS W/ SEV OROPHARYNGEAL DYSPHAGIA W/ SEVERELY INCREASED ORAL TRANSIT TIME (42 SECONDS PLUS) AND SEVERELY DELAYED SWALLOW (NOT TRIGGERED EVEN WHEN BOLUS REACHES UES). PT IS AT HIGH RISK FOR ASPIRATION, MALNUTRITION, AND DEHYDRATION. REC: NPO - GT PLACEMENT. SON IN AGREEMENT. MAY HAVE VERY SMALL AMOUNT OF P.O. (PUREE/NECTAR THICK LIQUIDS VIA TSP) GIVEN BY FAMILY FOR ORAL GRATIFICATION. NURSE JUICE NOTIFIED. G8996 CM G8997 CM G8998 CM NOMS LEVEL 2
--- NOTE | 2018-12-04 15:58 | NUR ---
GI CONSULT: CALLED DR [facility] P#[phone],REGARDING CONSULT AND LEFT MESSAGE C/O KERLINE.
--- NOTE | 2018-12-04 16:00 | NUR ---
ROUNDS: PATIENT IS SLEEPING IN BED WITH FAMILY AT BEDSIDE. BREATHING IS UNLABORED AND CHEST EXPANSION SYMMETRICAL. IV PATENT WITH NO SIGNS OF INFILTRATION AND RUNNING FLUIDS PER DOCTORS ORDERS. NO DISTRESS NOTED. FALL, SAFETY, AND ASPIRATION PRECAUTIONS IN PLACE. BED LOCKED IN LOWEST POSITION WITH CALL LIGHT IN REACH. WILL CONTINUE TO MONITOR PATIENT FOR ANY CHANGES.
[2018-12-04 16:23] VITALS: BP_SYST 132
--- NOTE | 2018-12-04 18:45 | NUR ---
CLOSING NOTES: PATIENT IS AWAKE AND LAYING DOWN IN BED WITH FAMILY AT BED SIDE. IV IS PATENT WITH NO SIGNS OF INFILTRATION AND RUNNING FLUIDS PER DOCTORS ORDERS. BREATHING IS UNLABORED AND CHEST EXPANSION IS SYMMETRICAL. NO DISTRESS NOTED. PATIENT IS TOLERATING OXYGEN AT 2 L NASAL CANNULA WELL. FALL, SAFETY, AND ASPIRATION PRECAUTIONS KEPT IN PLACE THROUGHOUT THE SHIFT. BED LOCKED IN LOWEST POSITION WITH CALL LIGHT IN REACH. WILL ENDORSE PATIENT TO ONCOMING NURSE.
[2018-12-04 19:00] VITALS: BP_SYST 146
--- NOTE | 2018-12-04 19:15 | NUR ---
change of shift.pt.presents quiescent affect;calm,resting.pt.viewing tv programming.pt.had submitted to swallow eval;pt.failed. diet status;npo.pt.to submit to egd/peg-placement in am;12/05/18.pt.presetns s/p cva;pt.asphasic;pt's primary language;faroese. i am to attend to the pt;faroese.iv fluids infusing.family@bedside;/son.call light/telephone w/in the reach of the pt. Addendum: 12/07/18 at 0044 by Slick Morin RN pt.presents rectal tube.pt.presents washington catheter.
[2018-12-04 20:00] VITALS: BP_SYST 146
--- NOTE | 2018-12-04 20:00 | NUR ---
pt.assessed.v/s assessed;values w/in normal limits.iv access accessed intact;patent;iv fluids infusing.pt.assessed for cleanliness. pt.repositioned.i have assessed the rectal tube;intact;patent;fecal matter extant.i have assessed the washington catheter;urine content extant.general status stable.respiratory status stable.call light/telephone w/in the reach of the pt.
[2018-12-04] MEDS: ENOXAPARIN SODIUM 30 MG/0.3 ML SYRINGE SUBCUT SCH (21:00)
--- NOTE | 2018-12-04 21:00 | NUR ---
2100pmedication have been held 2/t npo diet status,.i have held the administration:ericx;2t procedure;in am; egd w/peg placement. Addendum: 12/07/18 at 0055 by Slick Morin RN i have reviewed the consent;egd/peg placement w/ family. had inquired if all the paper work had been signed. the had signed for all paper work.
--- NOTE | 2018-12-04 21:07 | NUR ---
Paged Dr. Weaver, Jonathan s/w Josie
--- NOTE | 2018-12-04 21:15 | NUR ---
family had apprised me that the pt.presented hiccups.to f/u; has been paged.
--- NOTE | 2018-12-04 22:00 | NUR ---
pt.assessed.pt.assessed for cleanliness.pt.repositioned.general status stable.respiratory stable stable.iv access assessed ;intact;patent.call light/telephone placed w/in the reach of the pt. Addendum: 12/07/18 at 0057 by Slick Morin RN i had been apprised per sammy/housekeeping supervisor [facility] the pt's procedure is scheduled for ;12/05/18. i have telephone the family.i had left a voice-mail; for the son.re;time of the procedure.
--- NOTE | 2018-12-05 | NUR ---
pt.assessed.v/s assessed.value w/in normal limits.pt.assessed for cleanliness.pt.repositioned.i have assessed the iv access;intact;patent; iv fluids infusing.general status stable.respiratory status stable.call light/telephone placed w/in the reach of the pt.
[2018-12-05 01:28] VITALS: BP_SYST 147
--- NOTE | 2018-12-05 01:30 | NUR ---
i have re-assigned to the unit;icu.i have provided the pt's report/data to kely.
--- NOTE | 2018-12-05 01:30 | NUR ---
[place] of Care Handoff report received from Kay at the bedside. Patient is resting comfortably in bed, eyes closed. Breathing is even and unlabored with visible chest rise and fall noted. No SOB, no acute distress, no signs of pain or discomfort at this time. IV site intact, dressing C/D/I, saline locked. Bed is locked, in the lowest position, 3x side rails up, bed alarm is on. NPO cone present on bedside table. Call light is within reach. Will continue with plan of care.
[2018-12-05] MEDS: ALBUTEROL SULFATE 0.083% 2.5 MG/3 ML VIAL.NEB INH SCH ×4 (01:31→20:56)
[2018-12-05] MEDS: CARBIDOPA/LEVODOPA 25/100 MG TABLET PO SCH ×4 (02:00→18:00)
--- NOTE | 2018-12-05 03:30 | NUR ---
Patient is resting comfortably in bed, eyes closed. Breathing even and unlabored. Noted visible chest rise and fall. No SOB, no acute distress. Stable.
--- NOTE | 2018-12-05 05:30 | NUR ---
Patient resting in bed, AOx1. No SOB, no acute distress, no complaints of pain at this time. IV site intact, currently infusing IVF 1/2 NS @ 125 per MD order, see eMAR. Bed is locked, in the lowest position, 2x side rails up, bed alarm is on. Call light within reach. Encouraged patient to call for assistance.
[2018-12-05] MEDS: OXYBUTYNIN CHLORIDE 5 MG TABLET PO SCH ×3 (06:00→22:43)
[2018-12-05] MEDS ORDERED: SIMETHICONE 40 MG/0.6 ML ML ONE (06:28)
[2018-12-05] MEDS: LEVOTHYROXINE SODIUM 0.1 MG TABLET PO SCH (06:37)
--- NOTE | 2018-12-05 07:00 | NUR ---
Patient picked up by Cee from GI. Sent for procedure.
[2018-12-05 07:17] LABS: PROTHROMBIN TIME 10.3 SECS (9.5-12.5)
[2018-12-05] MEDS: MIDAZOLAM HCL 5 MG/5 ML VIAL ONE ×4 (07:30→07:39)
[2018-12-05] MEDS: fentaNYL CITRATE/PF 100 MCG/2 ML AMP ONE ×2 (07:30→07:32)
--- NOTE | 2018-12-05 07:45 | NUR ---
Closing Notes Handoff report given to Javier. Patient is currently at a procedure. Fall, aspiration, and safety precautions maintained. All needs have been met during this shift.
--- NOTE | 2018-12-05 08:30 | NUR ---
rounds pt back from gi lab s/p placement of gt. drowsy but arousable to stimuli. no sob noted.
[2018-12-05] MEDS: ASPIRIN 81 MG TABLET(ECOTRIN) PO SCH (09:00)
[2018-12-05] MEDS: MEMANTINE HCL 5 MG TABLET PO SCH (09:00)
[2018-12-05] MEDS: BALSAM PERU/CASTOR OIL 60 GM OINT...G. TP SCH (09:00)
[2018-12-05] MEDS: THEOPHYLLINE ANHYDROUS 200 MG CAP.ER.24H PO SCH (09:00)
[2018-12-05 09:30] VITALS: BP_SYST 120
[2018-12-05] MEDS: 0.45% NACL 1,000 ML IV SCH ×3 (09:35→20:41)
[2018-12-05] MEDS: MEROPENEM 1 GM in NS 100 ML IV SCH ×2 (09:36→20:38)
--- NOTE | 2018-12-05 10:00 | NUR ---
rounds pt son's at bedside and updated re diet regimen of the patient. gt intact and clamped at this time. abd binder in place. turned repositioned at bedside.
--- NOTE | 2018-12-05 11:21 | NUR ---
Nutrition F/U RD reviewed pt's current EMR including diet Hx, physician notes, nursing notes, pertinent labs/meds/procedures, care trends and care activity. Current Diet Order: Jevity 1.2 at 10ml/hr, increase to goal of 50ml/hr, FWF 100 via GT Subjective information: Pt seen in bed. RD s/w RN, TF will start at 4pm today per MD orders. Per [facility] 12/04/18: rec: GT feeding, may have small amount of Pureed diet w/ NTL per orem for oral gratification. Pt w/ pressure ulcers and flexiseal per RN notes. Current EN regimen will not be adequate for pt's nutritional needs. Pt may benefit from Vital AF 1.2 for increased protein concentration w/ Amadeo BID for wound healing. Current PO intake: N/A on EN support Estimated Energy Expenditure (kcals/day) 7626-2483 kcal/day (30-35 kcal/kg IBW for wound healing) Estimated Protein Required (g/day) 89-118 gm/day (1.5-2gm/kg IBW for wound healing) Estimated Fluid Required (l/day) 1.8-2 L/day (1ml/calorie for maintenance) Problem/Etiology/Signs/Symptoms Increased nutrient needs r/t metabolic demands AEB estimated calorie and protein needs for wound healing. (*ongoing) Inadequate nutrient intake r/t swallowing difficulty AEB PO intake not meeting 75% of estimated needs and need for swallow eval and calorie counting. (*improving w/ EN support) Expected Outcomes/Goals Monitor EN tolerance, EN intake, PO intake w/ goal of pt meeting at least 75% of estimated nutritional needs, labs trending WNL, normal GI function, skin integrity/wt maintenance. Dietitian Recommendations *Recommend continuing Pureed diet w/ NTL per ST rec for oral gratification. *Recommend Vital AF 1.2 at 65ml/hr (goal rate), FWF 130ml Q6H via GT Provides: 2032 kcal, 122 gm protein and 1785ml free water daily. Meets: 98% of upper end of calorie needs and 103% of upper end of estimated protein needs. Follow Up High Risk: F/U in 2-3days
--- NOTE | 2018-12-05 11:36 | NUR ---
Dietitian Recommendations *Recommend continuing Pureed diet w/ NTL per ST rec for oral gratification. *Recommend Vital AF 1.2 at 65ml/hr (goal rate), FWF 130ml Q6H via GT Provides: 2032 kcal, 122 gm protein and 1785ml free water daily. Meets: 98% of upper end of calorie needs and 103% of upper end of estimated protein needs. Please see nutrition F/U note for details. PRISON, RD
[2018-12-05 11:58] VITALS: BP_SYST 137
[2018-12-05] MEDS: FAMOTIDINE PF 20 MG/2 ML VIAL IVP SCH (13:04)
[2018-12-05 13:26] VITALS: BP_SYST 137
--- NOTE | 2018-12-05 16:00 | NUR ---
rounds gt feedings josé miguel well. no residual noted. no sob noted.
[2018-12-05 16:06] VITALS: BP_SYST 112
--- NOTE | 2018-12-05 19:00 | NUR ---
closing notes feedings josé miguel well. no residual noted. bed to the lowest position and side rails up and locked. call light within reached and pt close to the nurses station.
--- NOTE | 2018-12-05 19:30 | NUR ---
OPENING NOTE Late entry d/t patient care. Received resting w/eyes closed, upon arousal opens eyes, he is non verbal. is visiting at bedside. No sign of distress noted. Non-labored breathing on 2L NC. IVF infusing via IV on RFA. Patient has LOL matress, Bright catheter drainage bag is to gravity, he has rectal tube. Presently G-tube is running at 30 ml/hr. Bed is locked to lowest position, side rails up 3x, bed alarm on and call light w/in reach.
[2018-12-05 20:00] VITALS: BP_SYST 122
[2018-12-05] MEDS: ENOXAPARIN SODIUM 30 MG/0.3 ML SYRINGE SUBCUT SCH (20:40)
--- NOTE | 2018-12-05 21:03 | NUR ---
IVF - Medications IVF empty, hung new bag. Administered due antibiotic and patient tolerating. Repositioned for comfort. No residual and increased feeding 10 ml/hr. Family at bedside and leaving for the night. Safety precautions in place.
--- NOTE | 2018-12-05 22:23 | NUR ---
GT Feeding GT Feeding is at goal of 50 ml/hr. Patient tolerating feeding. Residual of 10ml noted. Will monitor.
[2018-12-06] MEDS: ALBUTEROL SULFATE 0.083% 2.5 MG/3 ML VIAL.NEB INH SCH ×4 (00:50→19:50)
[2018-12-06 00:56] VITALS: BP_SYST 120
--- NOTE | 2018-12-06 00:57 | NUR ---
Breathing Treatment RT providing breathing treatment.
--- NOTE | 2018-12-06 01:33 | NUR ---
Free Water Residual of 30 ml noted and returned. Provided 100 ml of free water. Repositioned patient and resumed feeding.
[2018-12-06 04:13] VITALS: BP_SYST 112
--- NOTE | 2018-12-06 04:15 | NUR ---
Rounds Repositioned patient. Vital signs taken and stable. Aspiration and safety precautions maintained.
--- NOTE | 2018-12-06 05:20 | NUR ---
Dressing Dressing on sacrum was changed. Area cleansed with NS, applied veniflex to wound, z-cindy to periwound,covered with foam dressing. Heel dressing was changed. Provided oral care.
[2018-12-06] MEDS: BALSAM PERU/CASTOR OIL 60 GM OINT...G. TP SCH (05:30)
[2018-12-06] MEDS: CARBIDOPA/LEVODOPA 25/100 MG TABLET PO SCH ×5 (05:44→22:30)
[2018-12-06] MEDS: OXYBUTYNIN CHLORIDE 5 MG TABLET PO SCH ×3 (05:44→22:24)
[2018-12-06] MEDS: LEVOTHYROXINE SODIUM 0.1 MG TABLET PO SCH (05:54)
--- NOTE | 2018-12-06 07:15 | NUR ---
Dr. Swan rounds Dr. Swan at bedside for rounds, was updated on G-Tube feeding tube tolerance during night.
--- NOTE | 2018-12-06 07:30 | NUR ---
closing note Patient resting w/eyes closed, he is non verbal. No sign of distress noted. Non-labored breathing on 2L NC. IVF infusing via IV on RFA. Patient has LOL matress, Bright catheter drainage bag is to gravity, he has rectal tube. Presently G-tube is running at 50 ml/hr. Bed is locked to lowest position, side rails up 3x, bed alarm on and call light w/in reach. Needs met throughout shift, will endorse to oncoming nurse.
--- NOTE | 2018-12-06 08:00 | NUR ---
initial notes rec patient asleep but arousbale to stimuli. opens eyes but non verbally responsive. ivf infusing well on r ac. no infiltration noted. gt intact and with 5 cc residual at this time. resp easy and unlabored and no sob noted. bed to the lowest position and side rails up and locked.
[2018-12-06 08:30] VITALS: BP_SYST 111
[2018-12-06] MEDS: 0.45% NACL 1,000 ML IV SCH ×2 (09:44→22:22)
[2018-12-06] MEDS: MEROPENEM 1 GM in NS 100 ML IV SCH ×2 (09:44→22:19)
--- NOTE | 2018-12-06 10:00 | NUR ---
rounds due meds given as ordered, residual was 50 cc through the gt. no sob noted.
[2018-12-06] MEDS: FAMOTIDINE PF 20 MG/2 ML VIAL IVP SCH (10:10)
[2018-12-06] MEDS: MEMANTINE HCL 5 MG TABLET PO SCH (10:10)
[2018-12-06] MEDS: ASPIRIN 81 MG TABLET(ECOTRIN) PO SCH (10:10)
--- NOTE | 2018-12-06 11:26 | NUR ---
Discharge Planning: DCP faxed referal to [facility] (f [phone] p [phone]) DCP to follow up. Addendum: 12/06/18 at 1604 by Ivonne CHUNG [facility] (f [phone] p [phone]) accepted patient to [id number] and nurse aware.
--- NOTE | 2018-12-06 12:00 | NUR ---
rounds asleep when rounds made. turned repositioned for comfort.no sob noted. pt close to the nurse station.
[2018-12-06 12:30] VITALS: BP_SYST 109
[2018-12-06] MEDS: THEOPHYLLINE ANHYDROUS 200 MG CAP.ER.24H PO SCH (12:42)
--- NOTE | 2018-12-06 14:00 | NUR ---
rounds resting comfortably, no sob noted.
--- NOTE | 2018-12-06 16:00 | NUR ---
rounds sleeps at intervals. repositioned for comfort. no sob noted. pt close to the nurses station.
--- NOTE | 2018-12-06 16:23 | NUR ---
ATTENDING MD DR SHAUN RAMOS WAS CALLED, RE: DISCHARGE ORDER TO SNF ([facility]). SPOKE TO BRIONNA.
[2018-12-06 16:30] VITALS: BP_SYST 120
[2018-12-06 19:00] VITALS: BP_SYST 119
[2018-12-06] MEDS: ENOXAPARIN SODIUM 30 MG/0.3 ML SYRINGE SUBCUT SCH (22:24)
[2018-12-07] MEDS: ALBUTEROL SULFATE 0.083% 2.5 MG/3 ML VIAL.NEB INH SCH ×4 (00:33→19:29)
[2018-12-07 00:43] VITALS: BP_SYST 108
--- NOTE | 2018-12-07 05:23 | NUR ---
Renato Ascencio wants pt to go to [facility] acute rehab. Pt's family ( and son) are agreeable. Will endorse to am shift nurse.
--- NOTE | 2018-12-07 05:23 | NUR ---
Pt sleeping comfortably in bed, eyes closed. Pt not in any apparent distress. No sob noted. Afebrile. V/S stable. No s/sx of pain/discomfort noted aeb absence of facial grimacing/moaning. Sinus tachycardia on the monitor. All needs met at this time. Bed in lowest position, locked. Bed alarm in place. Call light within reach. Will continue to monitor.
[2018-12-07] MEDS: CARBIDOPA/LEVODOPA 25/100 MG TABLET PO SCH ×4 (07:07→22:55)
[2018-12-07] MEDS: LEVOTHYROXINE SODIUM 0.1 MG TABLET PO SCH (07:08)
[2018-12-07] MEDS: OXYBUTYNIN CHLORIDE 5 MG TABLET PO SCH ×3 (07:08→22:55)
--- NOTE | 2018-12-07 07:30 | NUR ---
opening note patient is resting in bed, patient was nonverbal to me but shook my hand, assessment completed, educated promotional demonstrator light system and plan of care, patient nonverbal, no needs addressed at this time, fall/safety precautions in place, no signs of distress, IV fluids running, on 2L nasal cannula.
[2018-12-07 08:00] VITALS: BP_SYST 124
[2018-12-07] MEDS: ASPIRIN 81 MG TABLET(ECOTRIN) PO SCH (08:53)
[2018-12-07] MEDS: THEOPHYLLINE ANHYDROUS 200 MG CAP.ER.24H PO SCH (08:53)
[2018-12-07] MEDS: FAMOTIDINE PF 20 MG/2 ML VIAL IVP SCH (08:53)
[2018-12-07] MEDS: MEROPENEM 1 GM in NS 100 ML IV SCH ×2 (08:53→20:36)
[2018-12-07] MEDS: MEMANTINE HCL 5 MG TABLET PO SCH (08:53)
[2018-12-07] MEDS: 0.45% NACL 1,000 ML IV SCH ×2 (08:54→15:41)
[2018-12-07] MEDS: BALSAM PERU/CASTOR OIL 60 GM OINT...G. TP SCH (08:54)
--- NOTE | 2018-12-07 09:50 | NUR ---
rounds patient is resting in bed, watching tv, no needs addressed at this time, fall/safety precautions in place, no signs of distress, IV fluids running, on 2L nasal cannula.
--- NOTE | 2018-12-07 11:43 | NUR ---
Case mgt: Rec'd call from nurse Laila re: Dr. Weaver wants LTAC and not [facility] (pt resides at [facility])--Pt is on IV Merrem, IVF, G-tube, minimal wound care-Has no Medicare acute hospital days -pt accepted at SNF level of care--I explained to Laila that pt most likely wouldn't be accepted at LTAC for criteria and has no Medicare acute days. She will update Dr. Jonathan Weaver.
--- NOTE | 2018-12-07 11:55 | NUR ---
rounds patient resting in bed, turned patient, attempted to feed patient, patient was not interested in it and kept closing his mouth pushing his tongue out, no other needs at this time, Dr Weaver was paged to informed him about his SNF placement.
[2018-12-07 12:00] VITALS: BP_SYST 126
--- NOTE | 2018-12-07 13:30 | NUR ---
medications and Dr Weaver called informed him about patient being accepted back to [facility], per MD order he wants patient to get LTAC evaluation for [place], I informed CM about this, educated patient on medication use and side effects, given through g-tube, patient tolerated well, attempted to feed patient again but he was no interested.
--- NOTE | 2018-12-07 14:18 | NUR ---
Case mgt: Rec'd order for LTAC evaluation--order faxed to [place] at [facility]-fax#[phone]--I called [place] at [phone] also to notify her of LTAC evaluation and left her voice mail. CORY AVILEZ
--- NOTE | 2018-12-07 15:40 | NUR ---
new 1/2 normal saline hung patient has eyes closed breathing easy and nonlabored, new fluid bag hung, IV fluids running, new Jevity 1.2 bottle hung, patient tolerating well, fall/safety precautions in place.
[2018-12-07 16:30] VITALS: BP_SYST 128
--- NOTE | 2018-12-07 19:01 | NUR ---
closing note patient is resting in bed, patient drank some sips of water and ate some bites of his food, family in the room, no needs addressed at this time, fall/safety precautions in place, no signs of distress, IV fluids running, on 2L nasal cannula, will endorse report to noc shift nurse to continue with care, no signs of distress.
--- NOTE | 2018-12-07 19:37 | NUR ---
PM SHIFT ASSESSMENT Received patient lying in bed, aox1, nonverbal, on room air, rt at bedside administering breathing treatment at this time, family at bedside, plan of care updated, all verbalized understanding, compliant, patient has washington catheter and flexiseal secured and to gravity, fall and safety measures in place, will monitor.
--- NOTE | 2018-12-07 19:48 | NUR ---
MD LISA Tellez at patient's bedside, updated him on patient's status, no new orders at this time. Addendum: 12/07/18 at 2211 by Kay Ballard RN charted on wrong patient
[2018-12-07 20:00] VITALS: BP_SYST 131
[2018-12-07] MEDS: ENOXAPARIN SODIUM 30 MG/0.3 ML SYRINGE SUBCUT SCH (20:36)
--- NOTE | 2018-12-07 21:00 | NUR ---
RN ROUNDS Patient awake, no sob noted, no facial grimacing noted for pain, due antibiotics administered via IV line, safety measures in place, will monitor.
--- NOTE | 2018-12-07 23:15 | NUR ---
RN ROUNDS Patients due medications administered via gtube, no residual noted, flushed with h20. patient tolerated well, resumed gtube feeding of jevity 1.2 @ 50 ml/hr.
[2018-12-08] VITALS (7 sets, daily range): BP systolic 124–154
--- NOTE | 2018-12-08 00:01 | NUR ---
RN ROUNDS Patient awake, watching tv, no distress noted, remains on 02 2l NC, vital signs stable. IV line infiltrated, new iv line placed to right forearm with 22 gauge catheter, secured with opsite and tape, resumed IVF of 1/2 NS @125 ml/hr. Patient turned and repositioned with pillow support, safety measures in place, will monitor.
[2018-12-08] MEDS: ALBUTEROL SULFATE 0.083% 2.5 MG/3 ML VIAL.NEB INH SCH ×4 (00:53→20:19)
[2018-12-08] MEDS: 0.45% NACL 1,000 ML IV SCH ×4 (01:27→22:08)
--- NOTE | 2018-12-08 02:02 | NUR ---
RN ROUNDS Patient resting quietly, no distress noted, remains on 02 2l NC, turned and repositioned with pillow support, safety measures in place, will monitor.
--- NOTE | 2018-12-08 04:08 | NUR ---
RN ROUNDS Patient resting quietly in bed, breathing is even and unlabored, remains on 02 2l NC, incontinence care provided, washington catheter and flexiseal in place, patient repositioned and turned with pillow support, safety measures in place.
[2018-12-08] MEDS: CARBIDOPA/LEVODOPA 25/100 MG TABLET PO SCH ×3 (05:50→18:07)
[2018-12-08] MEDS: OXYBUTYNIN CHLORIDE 5 MG TABLET PO SCH ×3 (05:50→22:07)
[2018-12-08] MEDS: LEVOTHYROXINE SODIUM 0.1 MG TABLET PO SCH (05:50)
--- NOTE | 2018-12-08 06:20 | NUR ---
RN ROUNDS Patient resting quietly in bed, breathing is even and unlabored, remains on 02 2l NC, IV line to right forearm intact and patent, IVF infusing, Gtube feeding infusing at 50 ml/hr, patient needs attended to, repositioned and turned with pillow support, safety measures maintained, will continue to monitor until report given to am nurse.
--- NOTE | 2018-12-08 07:40 | NUR ---
opening note patient is resting in bed, patient was nonverbal to me but shook my hand, assessment completed, educated video production coordinator light system and plan of care, patient nonverbal, no needs addressed at this time, fall/safety precautions in place, no signs of distress, IV fluids running, washington and flexiseal in place, on 2L nasal cannula.
[2018-12-08] MEDS: MEROPENEM 1 GM in NS 100 ML IV SCH ×2 (09:03→22:07)
[2018-12-08] MEDS: BALSAM PERU/CASTOR OIL 60 GM OINT...G. TP SCH (09:04)
[2018-12-08] MEDS: MEMANTINE HCL 5 MG TABLET PO SCH (09:04)
[2018-12-08] MEDS: THEOPHYLLINE ANHYDROUS 200 MG CAP.ER.24H PO SCH (09:04)
[2018-12-08] MEDS: FAMOTIDINE PF 20 MG/2 ML VIAL IVP SCH (09:04)
[2018-12-08] MEDS: ASPIRIN 81 MG TABLET(ECOTRIN) PO SCH (09:04)
--- NOTE | 2018-12-08 09:10 | NUR ---
rounds patient is resting in bed, TRANSIT VEHICLE INSPECTOR informed me that patient ate 100% of his breakfast, tube feeding paused because patient communicated with us that he is full, medications were given via g tube and patient tolerated well, no other needs at this time.
--- NOTE | 2018-12-08 13:10 | NUR ---
Nutrition F/U RD reviewed pt's current EMR including diet Hx, physician notes, nursing notes, pertinent labs/meds/procedures, care trends, and care activity. Current Diet Order: puree, NTL x3 days + Jevity 1.2 at 50 ml/hr (goal), Free Water Flush: 100 ml Q8h via GT x3 days Subjective information: Pt seen sleeping at time of RD visit. TF infusing as per physician order. Per RN, pt has been tolerating TF well, and ate 100% of breakfast. Pt continues w/ a flexiseal w/ loose stool. Pt will benefit from Amadeo BID for Hx of PU. Current PO intake: N/A Estimated Energy Expenditure (kcals/day) 3831-1343 kcal/day (30-35 kcal/kg IBW for wound healing) Estimated Protein Required (g/day) 89-118 gm/day (1.5-2gm/kg IBW for wound healing) Estimated Fluid Required (l/day) 1.8-2 L/day (1ml/calorie for maintenance) Problem/Etiology/Signs/Symptoms Increased nutrient needs r/t metabolic demands AEB estimated calorie and protein needs for wound healing. *ongoing Inadequate nutrient intake r/t swallowing difficulty AEB PO intake not meeting 75% of estimated needs and need for swallow eval and calorie counting. *improving w/ dual feeding: puree diet w/ EN support Expected Outcomes/Goals Monitor EN tolerance, EN intake, PO intake w/ goal of pt meeting at least 75% of estimated nutritional needs, labs trending WNL, normal GI function, skin integrity/wt maintenance. Dietitian Recommendations * Recommend continuing puree diet w/ NTL per ST rec for oral gratification * Recommend Jevity 1.2 at 50 ml/hr (goal), Amadeo BID, Free Water Flush: 100 ml Q8h via GT Provides: 1600 kcal/day, 72 gm protein/day, and 1268 ml free water/day Meets: 90% of lower end of estimated caloric needs and 81% of lower end of estimated protein needs Follow Up High Risk: F/U in 2-3 days
--- NOTE | 2018-12-08 13:15 | NUR ---
Dietitian Recommendations * Recommend continuing puree diet w/ NTL per ST rec for oral gratification * Recommend Jevity 1.2 at 50 ml/hr (goal), Amadeo BID, Free Water Flush: 100 ml Q8h via GT Provides: 1600 kcal/day, 72 gm protein/day, and 1268 ml free water/day Meets: 90% of lower end of estimated caloric needs and 81% of lower end of estimated protein needs LP, RD Please refer to Nutrition F/U for details.
--- NOTE | 2018-12-08 13:30 | NUR ---
medications patient resting in bed, educated patient on medication use and side effects, given through g-tube, patient tolerated well, FITTER ARMAMENT fed patient earlier, per Dr Weaver order flexiseal was DCed.
--- NOTE | 2018-12-08 14:30 | NUR ---
DC Planning: f/u with [place]: no admitting decision yet. The case is in financial review.
--- NOTE | 2018-12-08 14:45 | NUR ---
[facility] LIASON OFFICER WAS CALLED, RE: TO INFORM HER THAT PT WAS DOWNGRADED TO MED SURGE STATUS FOR FASTER PLACEMENT.
--- NOTE | 2018-12-08 15:25 | NUR ---
rounds patient is resting in bed, no signs of distress, no needs addressed at this time, fall/safety precautions in place, IV fluids running, on 2L nasal cannula.
--- NOTE | 2018-12-08 18:47 | NUR ---
closing note patient is resting in bed, patient drank some sips of water and ate some bites of his food, last medications was given PO and patient tolerated well, when Dr Weaver came for rounds in the afternoon I made him aware about the patient being able to eat, he said that it is okay we can still feed him and give intermittent tube feeding if he stops eating again, no needs addressed at this time, fall/safety precautions in place, no signs of distress, IV fluids running, on 2L nasal cannula, will endorse report to noc shift nurse to continue with care, no signs of distress.
--- NOTE | 2018-12-08 19:15 | NUR ---
change of shift.pt.presents quiescent affect;calm;pt.presents diet status:po:puree/g-tube;if po intake% poor.g-tube feed to resume:g-tube feed resumed@this hour. jevity;1.2 kvcal@the rate;50ml/hr.pt.presents iv fluids.pt.presents respiratory status stable@room air.general status stable. a rectal tube had been d/c. pt.presents washington catheter.call light/telephone w/in the reach of the pt.
--- NOTE | 2018-12-08 20:00 | NUR ---
pt.assessed.v/s assessed;values w/in normal limits.pt.assessed for cleanliness.pt.repositioned.i have synchronized the tv to tamazight language programming.pt.has become attentive listening to the tamazight.i am to attend to the pt;tamazight.pt.presents lt.sided weakness:paraplegia. g-tube;intact;patent;g-tube feed infusing.iv access;intact;patent;iv fluids infuising.call light/telephone placed w/in the reach of the pt.rt.side;hand.
--- NOTE | 2018-12-08 21:00 | NUR ---
2100p medications administered via g-tube;intact;patent;no resistance.
--- NOTE | 2018-12-08 22:00 | NUR ---
pt.assessed.pt.assessed for cleanliness.pt.repositioned.iv access;intact;patent;iv fluids infusing.g-tube assessed;intact;patent;g-tube feed infusing.[place]ashington catheter assessed;intact;patent;urine content presents.call light/telephone placed w/in the reach of the pt.rt.side;hand.
[2018-12-08] MEDS: ENOXAPARIN SODIUM 30 MG/0.3 ML SYRINGE SUBCUT SCH (22:15)
--- NOTE | 2018-12-09 | NUR ---
pt.assessed.v/s assessed;values w/in normal limits.pt.assessed for cleanliness.pt.repositioned.iv access assessed;intact;patent;iv fluids infusing.g-tube assessed;intact;patent;g-tube feed infusing.washington catheter assessed;intact;patent;urine content present. have administered sinemet;midnight dose;via g-tube.call light/telephone placed w/in the reach of the pt.t.side;hand.
[2018-12-09 00:30] VITALS: BP_SYST 123
[2018-12-09] MEDS: CARBIDOPA/LEVODOPA 25/100 MG TABLET PO SCH ×6 (00:39→23:30)
[2018-12-09] MEDS: ALBUTEROL SULFATE 0.083% 2.5 MG/3 ML VIAL.NEB INH SCH ×4 (01:12→20:03)
--- NOTE | 2018-12-09 02:00 | NUR ---
pt.assessed.pt.presents quiescent affect;calm,somnolent.pt.assessed for cleanliness.pt.repositioned.g-tube assessed;intact;patent; g-tube feed infusing.iv access assessed ;intact;patent;iv fluids infusing.washington catheter assessed;intact;patent;urine content present.general status stable. respiratory status stable;unlabored.call light/telephone placed w/in reach of the pt.;rt.side;hand.
--- NOTE | 2018-12-09 04:00 | NUR ---
pt.assessed.pt.assessed for cleanliness.pt.repositioned.g-tube assessed intact;patent.g-tube feed infusing.iv access;intact;patent iv fluids infusing. [place]ton catheter assessed;intact;patent;urine content present.call light/telephone placed w/in the reach of the pt.rt.side;hand.
[2018-12-09] MEDS: LEVOTHYROXINE SODIUM 0.1 MG TABLET PO SCH (06:19)
[2018-12-09] MEDS: OXYBUTYNIN CHLORIDE 5 MG TABLET PO SCH ×3 (06:19→22:04)
[2018-12-09] MEDS: 0.45% NACL 1,000 ML IV SCH ×3 (06:20→22:20)
[2018-12-09 06:40] LABS: BASOPHILS % (AUTO) 0.5 % (0.0-2.0); EOSINOPHILS # (AUTO) 0.4 K/uL (0.0-0.4); EOSINOPHILS % (AUTO) 5.1 % (0.0-4.0); HEMATOCRIT 26.2 % (36-54); HEMOGLOBIN 8.9 g/dL (14.0-18.0); LYMPHOCYTES # (AUTO) 1.9 K/uL (1.0-5.5); LYMPHOCYTES % (AUTO) 24.7 % (20.5-51.5); MEAN CORPUSCULAR HEMOGLOBIN 31 pg (27-31); MEAN CORPUSCULAR HGB CONC 34 % (32-36); MEAN CORPUSCULAR VOLUME 92 fL (79.0-98.0); MONOCYTES # (AUTO) 0.5 K/uL (0.0-1.0); MONOCYTES % (AUTO) 6.3 % (1.7-9.3); NEUTROPHILS % (AUTO) 63.4 % (40.0-70.0); PLATELET COUNT (AUTO) 288 K/uL (130-430); RED BLOOD CELL COUNT(AUTO) 2.84 MIL/uL (4.2-6.2); RED CELL DISTRIBUTION WIDTH 15.2 % (9.0-15.0); WHITE BLOOD COUNT (AUTO) 7.9 K/uL (4.8-10.8)
--- NOTE | 2018-12-09 06:45 | NUR ---
pt.assessed.pt.assessed for cleanliness.pt.cleaned.i have change the iv fluids bag.i have changed the g-tube feed;bottle;tubing. i have attended to the dsg changes.i have administer the 0600-0700a medications via g-tube;intact;patent.g-tube dsg;intact/clean. original.call light/telephone placed w/in the reach of the pt.rt.side;hand.
[2018-12-09 07:09] LABS: ALBUMIN 1.8 g/dL (3.4-4.8); ASPARTATE AMINOTRANSFERASE 23 U/L (10-37); CALCIUM 8.7 mg/dL (8.4-11.0); CHLORIDE 112 mmol/L (98-107); CREATININE 0.68 mg/dL (0.55-1.30); GLUCOSE 86 mg/dL (70-99); POTASSIUM 3.9 mmol/L (3.5-5.1); SODIUM SERUM 144 mmol/L (136-145); TOTAL BILIRUBIN 0.2 mg/dL (0.0-1.0); UREA NITROGEN, BLOOD 11 mg/dL (8-21)
[2018-12-09 07:10] LABS: ANION GAP < 3 (5-15)
[2018-12-09 07:11] LABS: ALANINE AMINOTRANSFERASE < 5 U/L (12-78)
[2018-12-09 07:40] VITALS: BP_SYST 107
--- NOTE | 2018-12-09 07:40 | NUR ---
INITIAL ROUNDS Received pt awake, non-verbal, oriented to self only. No s/s resp distress, no s/s pain or discomfort. IVF infusing well to RFA at ordered rate with no s/s infiltration to site. Jevity 1.2 infusing well via g-tube at ordered rate with no residual noted. Note dressing clean, dry and intact to sacral area and bilat heels. Bilat heels with blue heelift boots in place. Pt repositioned with pillow support and heels off-loaded for skin care.Bright draining to gravity with yellow urine. HOB elevated for aspiration precautions, side rails up x3 and room across from nursing station for safety.
[2018-12-09] MEDS: FAMOTIDINE PF 20 MG/2 ML VIAL IVP SCH (09:15)
[2018-12-09] MEDS: MEMANTINE HCL 5 MG TABLET PO SCH (09:16)
[2018-12-09] MEDS: ASPIRIN 81 MG TABLET(ECOTRIN) PO SCH (09:16)
[2018-12-09] MEDS: THEOPHYLLINE ANHYDROUS 200 MG CAP.ER.24H PO SCH (09:16)
[2018-12-09] MEDS: BALSAM PERU/CASTOR OIL 60 GM OINT...G. TP SCH (09:17)
--- NOTE | 2018-12-09 10:05 | NUR ---
ROUNDS Pt resting quietly in bed with no s/s resp distress, no s/s pain or discomfort. Oral care provided, Bright care done. All precautions remain in place.
[2018-12-09 12:00] VITALS: BP_SYST 113
--- NOTE | 2018-12-09 14:10 | NUR ---
ROUNDS Pt resting quietly in bed with no s/s resp distress, no s/s pain or discomfort. Due medications given. All precautions remain in place.
--- NOTE | 2018-12-09 15:32 | NUR ---
SLIGHT FEVER Pt felt warm, temperature checked 99.1 F, cooling measures put in place. [place] removed , pt has top sheet in place.
[2018-12-09 16:58] VITALS: BP_SYST 124
--- NOTE | 2018-12-09 17:00 | NUR ---
FEVER RESOLVED. Pt's temperature now 98.3 F. Pt resting comfortably.
--- NOTE | 2018-12-09 18:25 | NUR ---
CLOSING NOTE Pt resting quietly in bed listening to [place] television. No s/s resp distress, no s/s pain or discomfort. No s/s fever. IVF infusing well at ordered rate with no s/s infiltration to site. Jevity infusing well via g-tube at ordered rate. All precautions remain in place. Call light within reach.
--- NOTE | 2018-12-09 19:10 | NUR ---
CHANGE OF SHIFT: pt. awake, alert non verbal, on high hussein's position, at bedside. fall precautions in place. IVF infusing and washington cath intact. pt. close to nursing station. call light at bedside. pt. was fed by his ,on pureed diet and tolerated fairly. will assess later.
--- NOTE | 2018-12-09 20:00 | NUR ---
NOTES: pt. repositioned on his side. kept HOB elevated. remain at bedside comforting pt. noted left sided weakness due to stroke. IVF infusing via rt. forearm , some slight swelling on left hand. G tube intact with abdominal binder, tube feed still on hold, checked residual and getting pureed food that was taken earlier. washington cath to OSD with yellow urine output. both heels protector on , bilateral heels with foam dressing.
--- NOTE | 2018-12-09 21:30 | NUR ---
NOTES: pt. calm and appears sleeping with eyes closed. in no acute distress. kept HOB elevated. both legs stiff when checked. safety measures in place.
[2018-12-09] MEDS: ENOXAPARIN SODIUM 30 MG/0.3 ML SYRINGE SUBCUT SCH (22:02)
--- NOTE | 2018-12-09 23:00 | NUR ---
NOTES: pt. been sleeping quietly, no acute distress. safety precautions in place.
--- NOTE | 2018-12-10 00:15 | NUR ---
NOTES; pt. awakened and repositioned. tube feeding continues. both legs/heels elevated with pillows. condition observed.
[2018-12-10 00:28] VITALS: BP_SYST 109
[2018-12-10] MEDS: ALBUTEROL SULFATE 0.083% 2.5 MG/3 ML VIAL.NEB INH SCH ×3 (01:05→13:41)
--- NOTE | 2018-12-10 02:08 | NUR ---
Renato De making rounds. Per Dr. Weaver, if financial review is denied, then patient is to be transferred to [place] today 12/10/18. Dr. Weaver wants staff to follow-up by the afternoon for answer on [place].
--- NOTE | 2018-12-10 02:30 | NUR ---
NOTES: pt. pretty calm, opens eyes when name called, responds when talking in marshallese.
--- NOTE | 2018-12-10 04:00 | NUR ---
NOTES: complete am care done, partial bath, sherry care. pt. had small amts of loose brown stool. pressure wound in coccyx dressing changed, appears stage 2 with open skin, pictures taken and also both heels, left heel more redness and discoloration, repositioned. rt. arm where IV appears fairly swollen and red with blood return. restarted another IV site on rt. hand with gauge 22, resume IVF.
--- NOTE | 2018-12-10 05:45 | NUR ---
NOTES: pt. still asleep. repositioned.
[2018-12-10] MEDS: OXYBUTYNIN CHLORIDE 5 MG TABLET PO SCH ×2 (06:25→14:38)
[2018-12-10] MEDS: CARBIDOPA/LEVODOPA 25/100 MG TABLET PO SCH ×3 (06:25→18:25)
--- NOTE | 2018-12-10 06:45 | NUR ---
CLOSING NOTES; pt. resting, no acute distress. IVF/ washington intact. G tube tolerating , due meds given. Kept O2 on. condition continue to obsrve. for further care and assistance, will endorse for discharge to incoming nurse per Dr. Weaver, follow with counter caser.
[2018-12-10] MEDS: LEVOTHYROXINE SODIUM 0.1 MG TABLET PO SCH (07:04)
[2018-12-10] MEDS: 0.45% NACL 1,000 ML IV SCH (08:32)
[2018-12-10] MEDS: ASPIRIN 81 MG TABLET(ECOTRIN) PO SCH (11:30)
[2018-12-10] MEDS: MEMANTINE HCL 5 MG TABLET PO SCH (11:30)
[2018-12-10] MEDS: FAMOTIDINE PF 20 MG/2 ML VIAL IVP SCH (11:30)
[2018-12-10 12:49] VITALS: BP_SYST 104
--- NOTE | 2018-12-10 13:49 | NUR ---
Wound Re-Evaluation: Late note for 1230 secondary to patient care. Patient received in a [place] Bed with an IsoFlex OLGA mattress with low air loss therapy initiated, awake, alert, nonverbal, non-responsive to verbal commands. Patient is unable to turn in bed independently. Jc Score is a 10. Past Medical History: COPD, BPH, Neurogenic Bladder, Hypertension, Hypothyroidism, indwelling Bright catheter, recent history of UTI, Dementia, Sacral Decubitus Ulcer, Aspiration Pneumonia. Microbiology: Urine culture negative. MRSA screen result is negative. Blood culture results 2 are negative. Intrinsic factors that delay wound healing: COPD. Extrinsic factors that delay wound healing: Immobility. Wound Assessment: 1. Sacral-Coccygeal area: Unstageable pressure ulcer, present on admission. Wound bed has 60% yellow tissue, 25% pink tissue and 15% red tissue. No odor, small red drainage. Periwound pink. Surrounding tissue has pink scar tissue and dark discoloration. Wound measures 4.0 cm x 0.5 cm. Recommend: Cleanse involved areas with normal saline. Pat dry. Apply moisture barrier cream to periwound areas. Apply Venelex ointment to wound beds. Cover site with Sacral foam dressing. Perform wound care daily, and as needed for dressing soiling or dislodgment. 2. Left Lateral Heel: Scar tissue from a healed stage IV pressure ulcer, present on admission. Site has purple discoloration and erythema. No odor, no drainage. 3. Right Heel: Blanchable erythema, present on admission. Recommend: Elevate, off-load, and float bilateral heels with one pillow lengthwise under each extremity at all times. Do not allow any portion of feet or heels to touch bed, other body parts, or other surfaces at any time. Maintain feet in offloading boots. Recommend: Reposition patient side to side only every two hours with pillow support. Elevate, off-load, and float bilateral heels with one pillow lengthwise under each extremity at all times. Do not allow any portion of feet or heels to touch bed, other body parts, or other surfaces at any time. Maintain feet in offloading boots. Offload pressure areas with pillows for pressure re-distribution. Perform skin care and monitor skin integrity q shift. Use moisture barrier cream on moisture susceptible areas qid and as needed for soiling. Maintain patient on a low air-loss mattress.
--- NOTE | 2018-12-10 14:23 | NUR ---
Discharge Planing: [facility] (f [phone] p [phone]) pt accepted back to room 119D. UNIQUE jean baptiste.
[2018-12-10] MEDS: THEOPHYLLINE ANHYDROUS 200 MG CAP.ER.24H PO SCH (14:37)
[2018-12-10] MEDS: BALSAM PERU/CASTOR OIL 60 GM OINT...G. TP SCH (14:38)
[2018-12-10 16:54] VITALS: BP_SYST 108
--- NOTE | 2018-12-10 18:45 | NUR ---
AT THE BEGINNING OF THE SHIFT PT IN BED RESTING QUIETLY,HOB ELEVATED,SR UP X3,O2 PER NC,GTF AND IVF INFUSING WITH NO DIFF.CALL LIGHT IN REACH,BED ALARM ON.
--- NOTE | 2018-12-10 18:47 | NUR ---
08 V/S 90/[id number]%-[id number]
--- NOTE | 2018-12-10 19:25 | NUR ---
CHANGE OF SHIFT; endorsed by day shift RN , pt. is gonna be discharge tonight to [place]. Nurse blanca will call report to the facility. pt. family at bedside and aware of discharge. informed case picker time one hour from now.
--- NOTE | 2018-12-10 19:36 | NUR ---
PT HAS DISCHARGE ORDER TO [facility], PT FAMILY AT THE BEDSIDE,PT AWAKE,SILENT,CALM,NO DISTRESS, REPORT GIVEN TO THE RECEIVING FACILITY WILIAM AVILEZ AND TO INCOMING NURSE.
[2018-12-10 19:39] VITALS: BP_SYST 101
--- NOTE | 2018-12-10 20:20 | NUR ---
NOTES: discharge instructions papers given to pt. family/son Lam and signed acknowledgement for transfer. given report to [facility] in stable condition. IV lock/g tube and washington cath intact.
--- NOTE | 2018-12-10 20:22 | NUR ---
pt. discharged via [facility] via [facility].
== END 2018-12-10 20:22 | DRG 871 ==
LOC: SMU 16:23 → STU 17:05 → SMU 12-08 14:00
PROVIDERS: ADMIT Internal Medicine Infectious Disease; ATTEND Internal Medicine Infectious Disease
PROC: 0DH63UZ Insertion of Feeding Device into Stomach, Percutaneous Approach (ICD-10-PCS; principal; 2018-12-05 07:15)
DX: A41.9 Sepsis, unspecified organism (principal); R65.21 Severe sepsis with septic shock; N12 Tubulo-interstitial nephritis, not specified as acute or chronic; N17.9 Acute kidney failure, unspecified; E03.9 Hypothyroidism, unspecified; G20 Parkinson's disease; F02.80 Dementia in other diseases classified elsewhere, unspecified severity, without behavioral disturbance, psychotic disturbance, mood disturbance, and anxiety; I10 Essential (primary) hypertension; J44.9 Chronic obstructive pulmonary disease, unspecified; N40.0 Benign prostatic hyperplasia without lower urinary tract symptoms; L89.159 Pressure ulcer of sacral region, unspecified stage; K20.9 Esophagitis, unspecified; N31.9 Neuromuscular dysfunction of bladder, unspecified; R13.10 Dysphagia, unspecified; R63.0 Anorexia; R62.7 Adult failure to thrive; Z87.440 Personal history of urinary (tract) infections; Z87.01 Personal history of pneumonia (recurrent); Z88.8 Allergy status to other drugs, medicaments and biological substances; Z68.20 Body mass index [BMI] 20.0-20.9, adult
CPT/HCPCS: 36415; 43246; 71045; 74230; 80048; 80053; 81000-TC; 85025; 85610-TC; 87040-TC; 87081; 87086; 92610-GN; 92611-GN; 94640; 94760; G0378; J1650; J2185; J2250; J3010; J3490; J7613

== ENCOUNTER 2019-04-17 19:59 | Inpatient (IN) | payer OTHER, MEDICAID ==
[~2019-04-17] VITALS: Ht 182.9 cm; Wt 68.9 kg
[2019-04-17 21:08] VITALS: BP_SYST 127
[2019-04-17] MEDS ORDERED: NACL 0.9% 1,000 ML IV ONE (22:15)
[2019-04-17 22:58] LABS: BASOPHILS # (AUTO) 0.1 K/uL (0.0-0.2); BASOPHILS % (AUTO) 0.9 % (0.0-2.0); EOSINOPHILS # (AUTO) 0.2 K/uL (0.0-0.4); EOSINOPHILS % (AUTO) 2.6 % (0.0-4.0); HEMATOCRIT 40.1 % (36-54); HEMOGLOBIN 13.6 g/dL (14.0-18.0); LYMPHOCYTES % (AUTO) 43.6 % (20.5-51.5); MEAN CORPUSCULAR HEMOGLOBIN 32 pg (27-31); MEAN CORPUSCULAR HGB CONC 34 % (32-36); MEAN CORPUSCULAR VOLUME 94 fL (79.0-98.0); MONOCYTES # (AUTO) 0.5 K/uL (0.0-1.0); MONOCYTES % (AUTO) 6.9 % (1.7-9.3); NEUTROPHILS # (AUTO) 3.2 K/uL (1.8-7.7); PLATELET COUNT (AUTO) 295 K/uL (130-430); RED BLOOD CELL COUNT(AUTO) 4.29 MIL/uL (4.2-6.2); RED CELL DISTRIBUTION WIDTH 15.6 % (9.0-15.0); WHITE BLOOD COUNT (AUTO) 6.9 K/uL (4.8-10.8)
[2019-04-17 23:11] LABS: ANION GAP 9 (5-15); CALCIUM 9.4 mg/dL (8.4-11.0); CHLORIDE 105 mmol/L (98-107); CREATININE 1.04 mg/dL (0.55-1.30); GLUCOSE 103 mg/dL (70-99); POTASSIUM 4.3 mmol/L (3.5-5.1); SODIUM SERUM 142 mmol/L (136-145); UREA NITROGEN, BLOOD 23 mg/dL (8-21)
[2019-04-17 23:26] LABS: ALANINE AMINOTRANSFERASE 47 U/L (12-78); ALBUMIN 3.9 g/dL (3.4-4.8); ASPARTATE AMINOTRANSFERASE 33 U/L (10-37); TOTAL BILIRUBIN 0.3 mg/dL (0.0-1.0)
[2019-04-18] MEDS ORDERED: LEVOFLOXACIN 500 MG/D5W 100 ML IV ONE
[2019-04-18 00:23] LABS: BILIRUBIN,URINE NEGATIVE (NEGATIVE); CLARITY/URINE CLEAR (CLEAR); COLOR,URINE YELLOW (YELLOW); GLUCOSE,URINE NEGATIVE (NEGATIVE); KETONES,URINE NEGATIVE (NEGATIVE); LEUKOCYTE ESTERASE ,URINE 2+ (NEGATIVE); NITRITE, URINE NEGATIVE (NEGATIVE); PROTEIN URINE NEGATIVE (NEGATIVE); UROBILINOGEN,URINE 0.2 (0.2-1.0)
[2019-04-18 00:33] LABS: BLOOD, URINE TRACE (NEGATIVE)
[2019-04-18 00:35] LABS: RBC,URINE 0-3 /HPF (0-3); WBC,URINE 20-50 /HPF (0-3)
[2019-04-18 00:36] LABS: BACTERIA,URINE FEW /HPF (None Seen)
[2019-04-18] MEDS ORDERED: NACL 0.9% 1,000 ML IV SCH (02:45)
[2019-04-18 06:50] VITALS: BP_SYST 151
[2019-04-18 08:00] VITALS: BP_SYST 148
[2019-04-18] MEDS ORDERED: ACETAMINOPHEN 325 MG TABLET PO PRN (08:45)
[2019-04-18] MEDS ORDERED: MUPIROCIN 2% TOPICAL OINTMENT 22 GM NS PRN (08:45)
[2019-04-18] MEDS ORDERED: DOCUSATE SODIUM 100 MG CAPSULE PO PRN (08:45)
[2019-04-18] MEDS ORDERED: MAGNESIUM SULFATE 50 ML IV PRN (08:45)
[2019-04-18] MEDS ORDERED: LORazepam 2 MG/ML VIAL IVP PRN (08:45)
[2019-04-18] MEDS ORDERED: POTASSIUM CHLORIDE 20 MEQ TAB.PRT.SR PO PRN (08:45)
[2019-04-18] MEDS ORDERED: ONDANSETRON HCL 4 MG/2 ML VIAL IVP PRN (08:45)
[2019-04-18] MEDS: NACL 0.9% 1,000 ML IV SCH ×2 (08:45→23:24)
[2019-04-18] MEDS ORDERED: MORPHINE 2 MG/ML INJ. SYRINGE IVP PRN ×2 (08:45)
[2019-04-18] MEDS ORDERED: ZOLPIDEM TARTRATE 5 MG TABLET PO PRN (08:45)
[2019-04-18] MEDS: PEG 400/HYPROMELLOSE/GLYCERIN 15 ML DROPS OP SCH (09:00)
[2019-04-18] MEDS ORDERED: PIPERACILLIN/TAZO 3.375 GM in NS 50 ML IV SCH (09:00)
[2019-04-18] MEDS ORDERED: IPRATROPIUM/ALBUTEROL SULFATE 3 ML AMPUL.NEB (DUONEB) INH ONE (09:00)
[2019-04-18] MEDS: MEMANTINE HCL 5 MG TABLET PO SCH (10:03)
[2019-04-18] MEDS: LORATADINE 10 MG TABLET PO SCH (10:03)
[2019-04-18] MEDS: DOCUSATE SODIUM 100 MG CAPSULE PO SCH (10:03)
[2019-04-18] MEDS: ASPIRIN 81 MG TABLET(ECOTRIN) PO SCH (10:03)
[2019-04-18] MEDS: TAMSULOSIN HCL 0.4 MG CAP PO SCH (10:03)
[2019-04-18] MEDS: MULTIVITAMINS TAB 1 TABLET PO SCH (10:03)
[2019-04-18] MEDS: CITALOPRAM HYDROBROMIDE 20 MG TABLET PO SCH (10:04)
[2019-04-18] MEDS: LISINOPRIL 10 MG TABLET (PRINIVIL) PO SCH (10:04)
[2019-04-18] MEDS: HEPARIN SODIUM,PORCINE 5000 UNITS/ML VIAL SUBCUT SCH ×2 (10:05→20:35)
[2019-04-18] MEDS: PIPERACILLIN/TAZO 3.375/DEX-IS 50 ML IV SCH ×3 (11:50→23:24)
[2019-04-18 12:47] VITALS: BP_SYST 158
[2019-04-18] MEDS: IPRATROPIUM/ALBUTEROL SULFATE 3 ML AMPUL.NEB (DUONEB) INH SCH ×2 (16:09→20:22)
[2019-04-18 16:39] VITALS: BP_SYST 158
[2019-04-18 16:51] VITALS: BP_SYST 148
[2019-04-18 20:00] VITALS: BP_SYST 135
[2019-04-19 00:18] VITALS: BP_SYST 150
[2019-04-19] MEDS: PIPERACILLIN/TAZO 3.375/DEX-IS 50 ML IV SCH ×3 (05:26→17:04)
[2019-04-19] MEDS: IPRATROPIUM/ALBUTEROL SULFATE 3 ML AMPUL.NEB (DUONEB) INH SCH ×3 (07:16→20:38)
[2019-04-19 07:58] LABS: BASOPHILS % (AUTO) 0.4 % (0.0-2.0); EOSINOPHILS # (AUTO) 0.2 K/uL (0.0-0.4); EOSINOPHILS % (AUTO) 3.8 % (0.0-4.0); HEMATOCRIT 35.9 % (36-54); HEMOGLOBIN 12.1 g/dL (14.0-18.0); LYMPHOCYTES # (AUTO) 0.5 K/uL (1.0-5.5); LYMPHOCYTES % (AUTO) 9.1 % (20.5-51.5); MEAN CORPUSCULAR HEMOGLOBIN 31 pg (27-31); MEAN CORPUSCULAR HGB CONC 34 % (32-36); MEAN CORPUSCULAR VOLUME 93 fL (79.0-98.0); MONOCYTES # (AUTO) 0.5 K/uL (0.0-1.0); MONOCYTES % (AUTO) 8.4 % (1.7-9.3); NEUTROPHILS # (AUTO) 4.6 K/uL (1.8-7.7); NEUTROPHILS % (AUTO) 78.3 % (40.0-70.0); PLATELET COUNT (AUTO) 243 K/uL (130-430); RED BLOOD CELL COUNT(AUTO) 3.84 MIL/uL (4.2-6.2); RED CELL DISTRIBUTION WIDTH 15.7 % (9.0-15.0); WHITE BLOOD COUNT (AUTO) 5.9 K/uL (4.8-10.8)
[2019-04-19 08:00] VITALS: BP_SYST 146
[2019-04-19 08:12] LABS: ANION GAP 8 (5-15); CALCIUM 8.7 mg/dL (8.4-11.0); CHLORIDE 107 mmol/L (98-107); GLUCOSE 141 mg/dL (70-99); POTASSIUM 3.8 mmol/L (3.5-5.1); SODIUM SERUM 141 mmol/L (136-145); UREA NITROGEN, BLOOD 20 mg/dL (8-21)
[2019-04-19] MEDS: CITALOPRAM HYDROBROMIDE 20 MG TABLET PO SCH (08:18)
[2019-04-19] MEDS: LORATADINE 10 MG TABLET PO SCH (08:18)
[2019-04-19] MEDS: PEG 400/HYPROMELLOSE/GLYCERIN 15 ML DROPS OP SCH (08:18)
[2019-04-19] MEDS: ASPIRIN 81 MG TABLET(ECOTRIN) PO SCH (08:18)
[2019-04-19] MEDS: MULTIVITAMINS TAB 1 TABLET PO SCH (08:19)
[2019-04-19] MEDS: TAMSULOSIN HCL 0.4 MG CAP PO SCH (08:19)
[2019-04-19] MEDS: DOCUSATE SODIUM 100 MG CAPSULE PO SCH (08:19)
[2019-04-19] MEDS: MEMANTINE HCL 5 MG TABLET PO SCH (08:19)
[2019-04-19] MEDS: LISINOPRIL 10 MG TABLET (PRINIVIL) PO SCH (08:20)
[2019-04-19] MEDS: HEPARIN SODIUM,PORCINE 5000 UNITS/ML VIAL SUBCUT SCH ×2 (08:27→21:05)
[2019-04-19 11:25] VITALS: BP_SYST 157
[2019-04-19] MEDS ORDERED: PROMETHAZINE HCL 6.25 MG/5 ML UDC GT PRN (15:15)
[2019-04-19 15:18] VITALS: BP_SYST 142
[2019-04-19] MEDS: NACL 0.9% 1,000 ML IV SCH (15:28)
[2019-04-19] MEDS ORDERED: THORAZINE (chlorproMAZINE) 25 MG TAB PO PRN (16:45)
[2019-04-19 20:00] VITALS: BP_SYST 131
[2019-04-20] MEDS: PIPERACILLIN/TAZO 3.375/DEX-IS 50 ML IV SCH ×4 (00:16→18:13)
[2019-04-20 02:33] VITALS: BP_SYST 152
[2019-04-20] MEDS: NACL 0.9% 1,000 ML IV SCH ×2 (03:59→18:13)
[2019-04-20 07:32] LABS: BASOPHILS % (AUTO) 0.5 % (0.0-2.0); EOSINOPHILS # (AUTO) 0.5 K/uL (0.0-0.4); EOSINOPHILS % (AUTO) 7.1 % (0.0-4.0); HEMATOCRIT 34.5 % (36-54); HEMOGLOBIN 11.7 g/dL (14.0-18.0); LYMPHOCYTES # (AUTO) 1.4 K/uL (1.0-5.5); LYMPHOCYTES % (AUTO) 22.4 % (20.5-51.5); MEAN CORPUSCULAR HEMOGLOBIN 32 pg (27-31); MEAN CORPUSCULAR HGB CONC 34 % (32-36); MEAN CORPUSCULAR VOLUME 93 fL (79.0-98.0); MONOCYTES # (AUTO) 0.7 K/uL (0.0-1.0); MONOCYTES % (AUTO) 10.7 % (1.7-9.3); NEUTROPHILS # (AUTO) 3.8 K/uL (1.8-7.7); NEUTROPHILS % (AUTO) 59.3 % (40.0-70.0); PLATELET COUNT (AUTO) 233 K/uL (130-430); RED CELL DISTRIBUTION WIDTH 16.2 % (9.0-15.0); WHITE BLOOD COUNT (AUTO) 6.5 K/uL (4.8-10.8)
[2019-04-20 08:00] VITALS: BP_SYST 140
[2019-04-20 08:20] LABS: ANION GAP 7 (5-15); CALCIUM 8.8 mg/dL (8.4-11.0); CHLORIDE 109 mmol/L (98-107); GLUCOSE 109 mg/dL (70-99); SODIUM SERUM 142 mmol/L (136-145); UREA NITROGEN, BLOOD 15 mg/dL (8-21)
[2019-04-20] MEDS: LORATADINE 10 MG TABLET PO SCH (08:20)
[2019-04-20] MEDS: MULTIVITAMINS TAB 1 TABLET PO SCH (08:20)
[2019-04-20] MEDS: ASPIRIN 81 MG TABLET(ECOTRIN) PO SCH (08:20)
[2019-04-20] MEDS: DOCUSATE SODIUM 100 MG CAPSULE PO SCH (08:21)
[2019-04-20] MEDS: LISINOPRIL 10 MG TABLET (PRINIVIL) PO SCH (08:21)
[2019-04-20] MEDS: MEMANTINE HCL 5 MG TABLET PO SCH (08:22)
[2019-04-20] MEDS: CITALOPRAM HYDROBROMIDE 20 MG TABLET PO SCH (08:23)
[2019-04-20] MEDS: TAMSULOSIN HCL 0.4 MG CAP PO SCH (08:23)
[2019-04-20] MEDS: HEPARIN SODIUM,PORCINE 5000 UNITS/ML VIAL SUBCUT SCH ×2 (08:24→22:50)
[2019-04-20] MEDS: IPRATROPIUM/ALBUTEROL SULFATE 3 ML AMPUL.NEB (DUONEB) INH SCH ×3 (08:43→21:53)
[2019-04-20] MEDS: MUPIROCIN 2% TOPICAL OINTMENT 22 GM NS SCH ×2 (09:42→22:00)
[2019-04-20] MEDS: PEG 400/HYPROMELLOSE/GLYCERIN 15 ML DROPS OP SCH (09:42)
[2019-04-20 11:51] VITALS: BP_SYST 122
[2019-04-20 15:39] VITALS: BP_SYST 147
[2019-04-21] VITALS (7 sets, daily range): BP systolic 124–158
[2019-04-21] MEDS ORDERED: FLUCONAZOLE 200 MG TABLET (DIFLUCAN) GT ONE
[2019-04-21] MEDS: PIPERACILLIN/TAZO 3.375/DEX-IS 50 ML IV SCH ×4 (04:36→17:42)
[2019-04-21 06:06] LABS: CALCIUM 8.5 mg/dL (8.4-11.0); CHLORIDE 108 mmol/L (98-107); CREATININE 0.83 mg/dL (0.55-1.30); GLUCOSE 124 mg/dL (70-99); POTASSIUM 4.4 mmol/L (3.5-5.1); SODIUM SERUM 140 mmol/L (136-145); UREA NITROGEN, BLOOD 13 mg/dL (8-21)
[2019-04-21 07:08] LABS: BASOPHILS % (AUTO) 0.9 % (0.0-2.0); EOSINOPHILS # (AUTO) 0.4 K/uL (0.0-0.4); EOSINOPHILS % (AUTO) 7.8 % (0.0-4.0); HEMATOCRIT 32.2 % (36-54); HEMOGLOBIN 10.9 g/dL (14.0-18.0); LYMPHOCYTES # (AUTO) 1.3 K/uL (1.0-5.5); LYMPHOCYTES % (AUTO) 25.5 % (20.5-51.5); MEAN CORPUSCULAR HEMOGLOBIN 32 pg (27-31); MEAN CORPUSCULAR HGB CONC 34 % (32-36); MEAN CORPUSCULAR VOLUME 94 fL (79.0-98.0); MONOCYTES # (AUTO) 0.5 K/uL (0.0-1.0); MONOCYTES % (AUTO) 9.7 % (1.7-9.3); NEUTROPHILS # (AUTO) 2.9 K/uL (1.8-7.7); NEUTROPHILS % (AUTO) 56.1 % (40.0-70.0); PLATELET COUNT (AUTO) 232 K/uL (130-430); RED BLOOD CELL COUNT(AUTO) 3.43 MIL/uL (4.2-6.2); RED CELL DISTRIBUTION WIDTH 15.9 % (9.0-15.0); WHITE BLOOD COUNT (AUTO) 5.2 K/uL (4.8-10.8)
[2019-04-21 07:11] LABS: ANION GAP 6 (5-15)
[2019-04-21] MEDS: IPRATROPIUM/ALBUTEROL SULFATE 3 ML AMPUL.NEB (DUONEB) INH SCH ×2 (07:54→20:13)
[2019-04-21] MEDS: NACL 0.9% 1,000 ML IV SCH ×2 (10:07→22:41)
[2019-04-21] MEDS: MUPIROCIN 2% TOPICAL OINTMENT 22 GM NS SCH ×2 (10:09→21:32)
[2019-04-21] MEDS: HEPARIN SODIUM,PORCINE 5000 UNITS/ML VIAL SUBCUT SCH ×2 (10:10→21:35)
[2019-04-21] MEDS: PEG 400/HYPROMELLOSE/GLYCERIN 15 ML DROPS OP SCH (10:10)
[2019-04-21] MEDS: TAMSULOSIN HCL 0.4 MG CAP PO SCH (10:11)
[2019-04-21] MEDS: DOCUSATE SODIUM 100 MG CAPSULE PO SCH (10:11)
[2019-04-21] MEDS: CITALOPRAM HYDROBROMIDE 20 MG TABLET PO SCH (10:11)
[2019-04-21] MEDS: LORATADINE 10 MG TABLET PO SCH (10:11)
[2019-04-21] MEDS: MULTIVITAMINS TAB 1 TABLET PO SCH (10:12)
[2019-04-21] MEDS: MEMANTINE HCL 5 MG TABLET PO SCH (10:12)
[2019-04-21] MEDS: LISINOPRIL 10 MG TABLET (PRINIVIL) PO SCH (10:12)
[2019-04-21] MEDS: ASPIRIN 81 MG TABLET(ECOTRIN) PO SCH (10:12)
[2019-04-21] MEDS ORDERED: FAMO20TA8 PO (13:04)
[2019-04-21] MEDS ORDERED: POTA20TA83 PO (13:04)
[2019-04-21] MEDS ORDERED: HYDR-4038 PO (13:04)
[2019-04-21] MEDS ORDERED: BISA-79 PO (13:04)
[2019-04-21] MEDS ORDERED: LEVO100T9 PO (13:04)
[2019-04-21] MEDS ORDERED: OXYB5TAB11 PO (13:04)
[2019-04-21] MEDS ORDERED: FLEETMO RC (13:04)
[2019-04-21] MEDS ORDERED: LIP20 GT (13:04)
[2019-04-21] MEDS ORDERED: FER300L GT (13:04)
[2019-04-21] MEDS ORDERED: ALBU2.5V7 INH (13:04)
[2019-04-21] MEDS ORDERED: AMLO2.5T2 GT (13:04)
[2019-04-21] MEDS ORDERED: LOVI30 SQ (13:04)
[2019-04-21] MEDS ORDERED: FOLI-43 PO (13:04)
[2019-04-21] MEDS ORDERED: MOM PO (13:04)
[2019-04-21] MEDS ORDERED: CARB1TAB10 PO (13:04)
[2019-04-21] MEDS ORDERED: LEVODOPA PO SCH (13:15)
[2019-04-21] MEDS ORDERED: CARBIDOPA PO SCH (13:15)
[2019-04-21] MEDS ORDERED: CARBIDOPA/LEVODOPA 25/100 MG TABLET PO ONE (14:00)
[2019-04-21] MEDS: CARBIDOPA/LEVODOPA 25/100 MG TABLET PO SCH (17:42)
[2019-04-22] MEDS: PIPERACILLIN/TAZO 3.375/DEX-IS 50 ML IV SCH ×3 (00:07→12:41)
[2019-04-22] MEDS: CARBIDOPA/LEVODOPA 25/100 MG TABLET PO SCH ×3 (00:09→12:41)
[2019-04-22 00:24] VITALS: BP_SYST 152
[2019-04-22 06:22] LABS: BASOPHILS # (AUTO) 0.1 K/uL (0.0-0.2); EOSINOPHILS # (AUTO) 0.3 K/uL (0.0-0.4); HEMATOCRIT 32.8 % (36-54); HEMOGLOBIN 11.2 g/dL (14.0-18.0); LYMPHOCYTES # (AUTO) 1.3 K/uL (1.0-5.5); LYMPHOCYTES % (AUTO) 24.7 % (20.5-51.5); MEAN CORPUSCULAR HEMOGLOBIN 32 pg (27-31); MEAN CORPUSCULAR HGB CONC 34 % (32-36); MEAN CORPUSCULAR VOLUME 93 fL (79.0-98.0); MONOCYTES # (AUTO) 0.5 K/uL (0.0-1.0); NEUTROPHILS # (AUTO) 3.1 K/uL (1.8-7.7); NEUTROPHILS % (AUTO) 59.3 % (40.0-70.0); PLATELET COUNT (AUTO) 237 K/uL (130-430); RED BLOOD CELL COUNT(AUTO) 3.53 MIL/uL (4.2-6.2); RED CELL DISTRIBUTION WIDTH 15.8 % (9.0-15.0); WHITE BLOOD COUNT (AUTO) 5.3 K/uL (4.8-10.8)
[2019-04-22 06:38] LABS: ANION GAP 5 (5-15); CALCIUM 8.4 mg/dL (8.4-11.0); CHLORIDE 108 mmol/L (98-107); CREATININE 0.76 mg/dL (0.55-1.30); GLUCOSE 121 mg/dL (70-99); POTASSIUM 3.9 mmol/L (3.5-5.1); SODIUM SERUM 141 mmol/L (136-145); UREA NITROGEN, BLOOD 13 mg/dL (8-21)
[2019-04-22] MEDS: IPRATROPIUM/ALBUTEROL SULFATE 3 ML AMPUL.NEB (DUONEB) INH SCH ×2 (07:42→15:26)
[2019-04-22 08:05] VITALS: BP_SYST 133
[2019-04-22] MEDS: MUPIROCIN 2% TOPICAL OINTMENT 22 GM NS SCH (09:50)
[2019-04-22] MEDS: PEG 400/HYPROMELLOSE/GLYCERIN 15 ML DROPS OP SCH (09:50)
[2019-04-22] MEDS: NACL 0.9% 1,000 ML IV SCH (09:51)
[2019-04-22] MEDS: TAMSULOSIN HCL 0.4 MG CAP PO SCH (09:51)
[2019-04-22] MEDS: DOCUSATE SODIUM 100 MG CAPSULE PO SCH (09:51)
[2019-04-22] MEDS: CITALOPRAM HYDROBROMIDE 20 MG TABLET PO SCH (09:52)
[2019-04-22] MEDS: LORATADINE 10 MG TABLET PO SCH (09:52)
[2019-04-22] MEDS: MEMANTINE HCL 5 MG TABLET PO SCH (09:52)
[2019-04-22] MEDS: MULTIVITAMINS TAB 1 TABLET PO SCH (09:52)
[2019-04-22] MEDS: ASPIRIN 81 MG TABLET(ECOTRIN) PO SCH (09:52)
[2019-04-22] MEDS: LISINOPRIL 10 MG TABLET (PRINIVIL) PO SCH (09:52)
[2019-04-22] MEDS: HEPARIN SODIUM,PORCINE 5000 UNITS/ML VIAL SUBCUT SCH (09:54)
[2019-04-22 12:00] VITALS: BP_SYST 158
== END 2019-04-22 16:15 | DRG 177 ==
LOC: SED 19:59 → STU 22:50 → SMU 04-20 15:16
PROVIDERS: ADMIT General Practice; ATTEND General Practice
DX: J69.0 Pneumonitis due to inhalation of food and vomit (principal); G93.41 Metabolic encephalopathy; R40.2223 Coma scale, best verbal response, incomprehensible words, at hospital admission; N39.0 Urinary tract infection, site not specified; K21.9 Gastro-esophageal reflux disease without esophagitis; G30.9 Alzheimer's disease, unspecified; F02.80 Dementia in other diseases classified elsewhere, unspecified severity, without behavioral disturbance, psychotic disturbance, mood disturbance, and anxiety; F32.9 Major depressive disorder, single episode, unspecified; I10 Essential (primary) hypertension; N40.0 Benign prostatic hyperplasia without lower urinary tract symptoms; M19.90 Unspecified osteoarthritis, unspecified site; Z79.899 Other long term (current) drug therapy; Z88.8 Allergy status to other drugs, medicaments and biological substances; Z74.01 Bed confinement status; Z79.82 Long term (current) use of aspirin
CPT/HCPCS: 36415; 70450-TC; 71045; 80048; 80053; 81000-TC; 83036; 83605; 83735-TC; 84484; 85025; 87040-TC; 87081; 87086; 93005; 94640; 96361; 96365; 99285; G0378; J1644; J1956; J2543; J7030; J7620; Q0161; Q0169

== ENCOUNTER 2020-10-13 15:37 | Inpatient (IN) | payer OTHER, MEDICAID, SELFPAY ==
[~2020-10-13] VITALS: Ht 172.7 cm; Wt 83.0 kg
[~2020-10-13 15:37] MED LIST changes: +ALBU2.5V7 INH; +AMLO2.5T2 GT; -ASPI-1153 PO; +ASPI-1393 PO; +BISA-79 PO; +CARB1TAB10 PO; +FAMO20TA8 PO; +FER300L GT; +FLEETMO RC; +FOLI-43 PO; +HYDR-4038 PO; +LEVO100T9 PO; +LIP20 GT; +LISI10TA29 PO; -LISI10TA5 PO; +LOVI30 SQ; +MOM PO; +OXYB5TAB16 PO; +POTA20TA83 PO
[2020-10-13 15:45] VITALS: BP_SYST 104
[2020-10-13] MEDS ORDERED: FAMOTIDINE PF 20 MG/2 ML VIAL IVP ONE (16:00)
[2020-10-13] MEDS ORDERED: PANTOPRAZOLE SODIUM 40 MG/VIAL (PROTONIX) IVP ONE (16:00)
[2020-10-13] MEDS ORDERED: NACL 0.9% 1,000 ML IV ONE ×2 (16:15→17:30)
[2020-10-13] MEDS ORDERED: ACETAMINOPHEN 325 MG SUPP.RECT RC ONE (16:30)
[2020-10-13] MEDS ORDERED: ACETAMINOPHEN 650 MG SUPP.RECT RC ONE (16:30)
[2020-10-13 16:43] LABS: HEMATOCRIT 36.3 % (36-54); HEMOGLOBIN 12.2 g/dL (14.0-18.0); MEAN CORPUSCULAR HEMOGLOBIN 31 pg (27-31); MEAN CORPUSCULAR HGB CONC 34 % (32-36); MEAN CORPUSCULAR VOLUME 92 fL (79.0-98.0); PLATELET COUNT (AUTO) 243 K/uL (130-430); RED BLOOD CELL COUNT(AUTO) 3.96 MIL/uL (4.2-6.2); RED CELL DISTRIBUTION WIDTH 15.8 % (9.0-15.0)
[2020-10-13 17:08] LABS: BAND % (MANUAL) 14 % (0-6); BASOPHILS % (MANUAL) 0 % (0-2); EOSINOPHILS % (MANUAL) 0 % (0-7); LYMPHOCYTES % (MANUAL) 4 % (20-46); MONOCYTES % (MANUAL) 3 % (0-11)
[2020-10-13] MEDS ORDERED: POLY15DR31 EACH EYE (17:08)
[2020-10-13] MEDS ORDERED: [UNRECOGNIZED DRUG - OTHER] (17:08)
[2020-10-13] MEDS ORDERED: CRAN500T2 PO (17:08)
[2020-10-13] MEDS ORDERED: potassium (17:18)
[2020-10-13] MEDS ORDERED: OMEP20CA15 PO (17:18)
[2020-10-13] MEDS ORDERED: COLL100 PO (17:18)
[2020-10-13] MEDS ORDERED: BISA10SU61 RC (17:18)
[2020-10-13] MEDS ORDERED: FLEETMO RC (17:18)
[2020-10-13] MEDS ORDERED: THOR25 PO (17:18)
[2020-10-13] MEDS ORDERED: THEO300T45 PO (17:18)
[2020-10-13] MEDS ORDERED: LOVI40 SQ (17:18)
[2020-10-13] MEDS ORDERED: OXYB5TAB16 PO (17:18)
[2020-10-13] MEDS ORDERED: metroNIDAZOLE 500 mg/NS 100 ML IV ONE (17:30)
[2020-10-13] MEDS ORDERED: LEVOFLOXACIN IN DEXTROSE 5 % 100 ML IV ONE (17:30)
[2020-10-13 17:40] LABS: BILIRUBIN,URINE NEGATIVE (NEGATIVE); BLOOD, URINE 2+ (NEGATIVE); CLARITY/URINE CLOUDY (CLEAR); COLOR,URINE YELLOW (YELLOW); GLUCOSE,URINE NEGATIVE (NEGATIVE); KETONES,URINE NEGATIVE (NEGATIVE); LEUKOCYTE ESTERASE ,URINE 3+ (NEGATIVE); NITRITE, URINE POSITIVE (NEGATIVE); PH,URINE 8.5 (5.0-8.0); PROTEIN URINE 2+ (NEGATIVE); UROBILINOGEN,URINE 0.2 (0.2-1.0)
[2020-10-13 17:49] LABS: ANION GAP 14 (5-15); CALCIUM 9.4 mg/dL (8.4-11.0); CHLORIDE 105 mmol/L (98-107); CREATININE 2.19 mg/dL (0.55-1.30); GLUCOSE 174 mg/dL (70-99); POTASSIUM 4.3 mmol/L (3.5-5.1); SODIUM SERUM 140 mmol/L (136-145); UREA NITROGEN, BLOOD 71 mg/dL (8-21)
[2020-10-13 18:04] LABS: ALANINE AMINOTRANSFERASE 21 U/L (12-78); ALBUMIN 2.4 g/dL (3.4-4.8); ASPARTATE AMINOTRANSFERASE 24 U/L (10-37); FREE T4 (FREE THYROXINE) 1.6 ng/dl (0.8-1.5); THYROID STIMULATING HORMONE 1.18 uIu/mL (0.36-3.74); TOTAL BILIRUBIN 0.5 mg/dL (0.0-1.0)
[2020-10-13 18:06] LABS: INR 1.1 (0.80-1.20); PROTHROMBIN TIME 10.8 SECS (9.5-12.5)
[2020-10-13 18:20] LABS: BACTERIA,URINE MANY /HPF (None Seen); RBC,URINE 20-50 /HPF (0-3); WBC,URINE >100 /HPF (0-3)
[2020-10-13 18:21] LABS: URINE AMORPHOUS PHOSPHATES 3+ /HPF (None Seen)
[2020-10-13 18:22] LABS: MUCUS,URINE None Seen /LPF (None Seen)
[2020-10-13] MEDS ORDERED: MORPHINE 4 MG INJ. 4 MG/ML VIAL IVP PRN (19:00)
[2020-10-13] MEDS: D5/0.45 NS 1,000 ML IV SCH (19:30)
[2020-10-13] MEDS ORDERED: VANCOMYCIN HCL 1,500 MG in NS 250 ML IV ONE (21:00)
[2020-10-13 21:30] VITALS: BP_SYST 117
[2020-10-13 22:00] VITALS: BP_SYST 106
[2020-10-13] MEDS: PIPERACILLIN/TAZO 3.375 GM in NS 50 ML IV SCH (22:00)
[2020-10-13] MEDS ORDERED: NOREPINEPHRINE 4 MG/4 ML VIAL IV ONE (22:13)
[2020-10-13 23:00] VITALS: BP_SYST 108
[2020-10-13] MEDS ORDERED: ALBUMIN HUMAN 25% 50 ML IV STA (23:32)
[2020-10-13] MEDS ORDERED: DEXTROSE 50% JECT 50 ML DISP.SYRIN IVP PRN (23:45)
[2020-10-13] MEDS ORDERED: D5W 1,000 ML IV PRN (23:45)
[2020-10-13] MEDS ORDERED: ACETAMINOPHEN 650 MG SUPP.RECT RC PRN (23:45)
[2020-10-13] MEDS ORDERED: ACETAMINOPHEN 650 MG/20.3 ML UDC GT PRN (23:45)
[2020-10-13] MEDS ORDERED: GLUCOSE (DEXTROSE) ORAL GEL -Adults PO PRN (23:45)
[2020-10-13] MEDS ORDERED: NOREPINEPHRINE BITARTRATE 4 MG in NS 246 ML IV PRN (23:45)
[2020-10-14] VITALS (23 sets, daily range): BP systolic 94–157
[2020-10-14] MEDS ORDERED: COMMUNICATION ORDER XX ONE (01:15)
[2020-10-14] MEDS ORDERED: ALBUMIN HUMAN 25% 100 ML IV ONE (03:05)
[2020-10-14] MEDS: PIPERACILLIN/TAZO 3.375 GM in NS 50 ML IV SCH ×4 (04:24→21:25)
[2020-10-14] MEDS: D5/0.45 NS 1,000 ML IV SCH ×4 (06:11→23:30)
[2020-10-14] MEDS: INSULIN REGULAR, HUMAN 100 UNITS/ML, 10 ML VIAL (humuLIN R) SUBCUT PRN ×2 (06:15→23:44)
[2020-10-14 06:38] LABS: BASOPHILS % (AUTO) 0.1 % (0.0-2.0); HEMATOCRIT 30.9 % (36-54); HEMOGLOBIN 10.3 g/dL (14.0-18.0); LYMPHOCYTES # (AUTO) 0.5 K/uL (1.0-5.5); LYMPHOCYTES % (AUTO) 2.6 % (20.5-51.5); MEAN CORPUSCULAR HEMOGLOBIN 31 pg (27-31); MEAN CORPUSCULAR HGB CONC 33 % (32-36); MEAN CORPUSCULAR VOLUME 92 fL (79.0-98.0); MONOCYTES # (AUTO) 0.7 K/uL (0.0-1.0); MONOCYTES % (AUTO) 3.7 % (1.7-9.3); NEUTROPHILS # (AUTO) 17.6 K/uL (1.8-7.7); NEUTROPHILS % (AUTO) 93.6 % (40.0-70.0); PLATELET COUNT (AUTO) 186 K/uL (130-430); RED BLOOD CELL COUNT(AUTO) 3.36 MIL/uL (4.2-6.2); RED CELL DISTRIBUTION WIDTH 15.9 % (9.0-15.0); WHITE BLOOD COUNT (AUTO) 18.8 K/uL (4.8-10.8)
[2020-10-14 07:02] LABS: ALANINE AMINOTRANSFERASE 20 U/L (12-78); ALBUMIN 2.8 g/dL (3.4-4.8); ANION GAP 16 (5-15); ASPARTATE AMINOTRANSFERASE 17 U/L (10-37); CALCIUM 8.8 mg/dL (8.4-11.0); CHLORIDE 110 mmol/L (98-107); CREATININE 1.48 mg/dL (0.55-1.30); GLUCOSE 156 mg/dL (70-99); POTASSIUM 3.3 mmol/L (3.5-5.1); SODIUM SERUM 145 mmol/L (136-145); TOTAL BILIRUBIN 0.4 mg/dL (0.0-1.0); UREA NITROGEN, BLOOD 51 mg/dL (8-21)
[2020-10-14 07:59] LABS: VANCOMYCIN,RANDOM 14.8 ug/mL
[2020-10-14] MEDS ORDERED: LEVOTHYROXINE SODIUM 0.1 MG TABLET GT ONE (08:15)
[2020-10-14] MEDS ORDERED: POTASSIUM CHLORIDE 20 MEQ/PKT PACKET PO ONE (08:30)
[2020-10-14] MEDS: BISACODYL 10 MG/SUPPOSITORY RC SCH (09:47)
[2020-10-14] MEDS: CARBIDOPA/LEVODOPA 25/100 MG TABLET GT SCH ×3 (09:47→20:32)
[2020-10-14] MEDS: FOLIC ACID 1 MG TABLET GT SCH (09:48)
[2020-10-14] MEDS: ACETAMINOPHEN 650 MG/20.3 ML UDC GT PRN (18:19)
[2020-10-14] MEDS ORDERED: NACL 0.9% 1,000 ML IV ONE (19:30)
[2020-10-14] MEDS ORDERED: VANCOMYCIN HCL 1,250 MG in NS 250 ML IV SCH (20:00)
[2020-10-15] VITALS (13 sets, daily range): BP systolic 102–132
[2020-10-15] MEDS: CARBIDOPA/LEVODOPA 25/100 MG TABLET GT SCH ×4 (03:05→20:55)
[2020-10-15] MEDS: PIPERACILLIN/TAZO 3.375 GM in NS 50 ML IV SCH ×4 (03:06→20:56)
[2020-10-15] MEDS: LEVOTHYROXINE SODIUM 0.1 MG TABLET GT SCH (06:22)
[2020-10-15 07:50] LABS: BASOPHILS # (AUTO) 0.1 K/uL (0.0-0.2); BASOPHILS % (AUTO) 0.6 % (0.0-2.0); EOSINOPHILS # (AUTO) 1.7 K/uL (0.0-0.4); EOSINOPHILS % (AUTO) 14.5 % (0.0-4.0); HEMATOCRIT 30.4 % (36-54); HEMOGLOBIN 11.1 g/dL (14.0-18.0); LYMPHOCYTES # (AUTO) 0.6 K/uL (1.0-5.5); LYMPHOCYTES % (AUTO) 5.2 % (20.5-51.5); MEAN CORPUSCULAR HEMOGLOBIN 34 pg (27-31); MEAN CORPUSCULAR HGB CONC 37 % (32-36); MEAN CORPUSCULAR VOLUME 93 fL (79.0-98.0); MONOCYTES # (AUTO) 0.4 K/uL (0.0-1.0); MONOCYTES % (AUTO) 3.4 % (1.7-9.3); NEUTROPHILS # (AUTO) 8.8 K/uL (1.8-7.7); NEUTROPHILS % (AUTO) 76.3 % (40.0-70.0); PLATELET COUNT (AUTO) 457 K/uL (130-430); RED BLOOD CELL COUNT(AUTO) 3.28 MIL/uL (4.2-6.2); RED CELL DISTRIBUTION WIDTH 16.5 % (9.0-15.0); WHITE BLOOD COUNT (AUTO) 11.5 K/uL (4.8-10.8)
[2020-10-15 07:54] LABS: ALANINE AMINOTRANSFERASE 14 U/L (12-78); ALBUMIN 2.4 g/dL (3.4-4.8); AMYLASE 20 U/L (0-100); ANION GAP 14 (5-15); ASPARTATE AMINOTRANSFERASE 26 U/L (10-37); CALCIUM 8.7 mg/dL (8.4-11.0); CHLORIDE 113 mmol/L (98-107); CREATININE 1.42 mg/dL (0.55-1.30); GLUCOSE 137 mg/dL (70-99); PHOSPHORUS 2.5 mg/dL (2.7-4.5); SODIUM SERUM 149 mmol/L (136-145); THYROID STIMULATING HORMONE 0.56 uIu/mL (0.36-3.74); TOTAL BILIRUBIN 0.4 mg/dL (0.0-1.0); UREA NITROGEN, BLOOD 30 mg/dL (8-21)
[2020-10-15 08:04] LABS: POTASSIUM 2.7 mmol/L (3.5-5.1)
[2020-10-15] MEDS ORDERED: POTASSIUM CHLORIDE 20 MEQ/PKT PACKET ONE (08:14)
[2020-10-15] MEDS ORDERED: POTASSIUM CHLORIDE 20 MEQ/PKT PACKET PO ONE ×2 (08:15→08:30)
[2020-10-15] MEDS ORDERED: POTASSIUM CHLORIDE 40 MEQ, LIDOCAINE JECT 2% PF 100 MG 50 MG in NS 250 ML IV ONE (08:15)
[2020-10-15] MEDS: FOLIC ACID 1 MG TABLET GT SCH (08:19)
[2020-10-15 08:20] LABS: CHOLESTEROL 79 mg/dL (<200); HDL CHOLESTEROL 19 mg/dL (>45); LDL CHOLESTEROL 40 mg/dL (<100); TRIGLYCERIDES 144 mg/dL (30-150)
[2020-10-15] MEDS: BISACODYL 10 MG/SUPPOSITORY RC SCH (09:00)
[2020-10-15] MEDS: D5/0.45 NS 1,000 ML IV SCH ×3 (11:00→20:56)
[2020-10-16 00:25] VITALS: BP_SYST 122
[2020-10-16] MEDS: CARBIDOPA/LEVODOPA 25/100 MG TABLET GT SCH ×4 (04:11→22:14)
[2020-10-16] MEDS: PIPERACILLIN/TAZO 3.375 GM in NS 50 ML IV SCH ×4 (04:11→22:15)
[2020-10-16] MEDS: LEVOTHYROXINE SODIUM 0.1 MG TABLET GT SCH (06:15)
[2020-10-16 07:02] LABS: ANION GAP 14 (5-15); CALCIUM 8.6 mg/dL (8.4-11.0); CHLORIDE 117 mmol/L (98-107); CREATININE 1.18 mg/dL (0.55-1.30); GLUCOSE 136 mg/dL (70-99); PHOSPHORUS 2.3 mg/dL (2.7-4.5); POTASSIUM 3.4 mmol/L (3.5-5.1); SODIUM SERUM 152 mmol/L (136-145); UREA NITROGEN, BLOOD 24 mg/dL (8-21)
[2020-10-16 07:17] LABS: BASOPHILS # (AUTO) 0.1 K/uL (0.0-0.2); BASOPHILS % (AUTO) 0.7 % (0.0-2.0); EOSINOPHILS # (AUTO) 0.2 K/uL (0.0-0.4); HEMATOCRIT 32.5 % (36-54); HEMOGLOBIN 10.8 g/dL (14.0-18.0); LYMPHOCYTES # (AUTO) 0.9 K/uL (1.0-5.5); LYMPHOCYTES % (AUTO) 11.6 % (20.5-51.5); MEAN CORPUSCULAR HEMOGLOBIN 31 pg (27-31); MEAN CORPUSCULAR HGB CONC 33 % (32-36); MEAN CORPUSCULAR VOLUME 93 fL (79.0-98.0); MONOCYTES # (AUTO) 0.6 K/uL (0.0-1.0); MONOCYTES % (AUTO) 7.8 % (1.7-9.3); NEUTROPHILS # (AUTO) 5.9 K/uL (1.8-7.7); NEUTROPHILS % (AUTO) 77.9 % (40.0-70.0); PLATELET COUNT (AUTO) 184 K/uL (130-430); RED BLOOD CELL COUNT(AUTO) 3.49 MIL/uL (4.2-6.2); RED CELL DISTRIBUTION WIDTH 15.3 % (9.0-15.0); WHITE BLOOD COUNT (AUTO) 7.6 K/uL (4.8-10.8)
[2020-10-16 08:04] VITALS: BP_SYST 130
[2020-10-16] MEDS: FOLIC ACID 1 MG TABLET GT SCH (09:15)
[2020-10-16] MEDS: BISACODYL 10 MG/SUPPOSITORY RC SCH (09:15)
[2020-10-16] MEDS: D5/0.45 NS 1,000 ML IV SCH (09:16)
[2020-10-16 12:29] VITALS: BP_SYST 140
[2020-10-16 12:55] LABS: CREATININE, URINE 75.9 mg/dL; MICROALBUMIN/CREAT RATIO, UR 611 HIGH MG/G CRE (0.0-30.0)
[2020-10-16] MEDS ORDERED: K PHOS 15 MM in NS 250 ML IV ONE (14:00)
[2020-10-16] MEDS: D5W 1,000 ML IV SCH ×2 (14:24→23:38)
[2020-10-16 16:07] VITALS: BP_SYST 135
[2020-10-16 20:00] VITALS: BP_SYST 128
[2020-10-16 23:40] VITALS: BP_SYST 116
[2020-10-17] MEDS: CARBIDOPA/LEVODOPA 25/100 MG TABLET GT SCH ×4 (03:48→21:30)
[2020-10-17] MEDS: PIPERACILLIN/TAZO 3.375 GM in NS 50 ML IV SCH ×4 (03:51→21:33)
[2020-10-17] MEDS: LEVOTHYROXINE SODIUM 0.1 MG TABLET GT SCH (06:14)
[2020-10-17 06:24] LABS: BASOPHILS % (AUTO) 0.3 % (0.0-2.0); EOSINOPHILS # (AUTO) 0.4 K/uL (0.0-0.4); EOSINOPHILS % (AUTO) 4.1 % (0.0-4.0); HEMATOCRIT 32.3 % (36-54); HEMOGLOBIN 10.7 g/dL (14.0-18.0); LYMPHOCYTES % (AUTO) 11.2 % (20.5-51.5); MEAN CORPUSCULAR HEMOGLOBIN 31 pg (27-31); MEAN CORPUSCULAR HGB CONC 33 % (32-36); MEAN CORPUSCULAR VOLUME 92 fL (79.0-98.0); MONOCYTES # (AUTO) 0.6 K/uL (0.0-1.0); MONOCYTES % (AUTO) 6.9 % (1.7-9.3); NEUTROPHILS % (AUTO) 77.5 % (40.0-70.0); PLATELET COUNT (AUTO) 179 K/uL (130-430); RED BLOOD CELL COUNT(AUTO) 3.49 MIL/uL (4.2-6.2); RED CELL DISTRIBUTION WIDTH 15.6 % (9.0-15.0)
[2020-10-17 06:54] LABS: ANION GAP 13 (5-15); CALCIUM 8.4 mg/dL (8.4-11.0); CHLORIDE 115 mmol/L (98-107); CREATININE 1.02 mg/dL (0.55-1.30); GLUCOSE 150 mg/dL (70-99); PHOSPHORUS 2.9 mg/dL (2.7-4.5); POTASSIUM 3.3 mmol/L (3.5-5.1); SODIUM SERUM 150 mmol/L (136-145); UREA NITROGEN, BLOOD 19 mg/dL (8-21)
[2020-10-17 07:53] VITALS: BP_SYST 139
[2020-10-17] MEDS: BISACODYL 10 MG/SUPPOSITORY RC SCH (09:04)
[2020-10-17] MEDS: FOLIC ACID 1 MG TABLET GT SCH (09:04)
[2020-10-17] MEDS: D5W 1,000 ML IV SCH ×2 (09:06→19:23)
[2020-10-17 12:43] VITALS: BP_SYST 137
[2020-10-17 17:37] VITALS: BP_SYST 129
[2020-10-17 20:00] VITALS: BP_SYST 119
[2020-10-18] VITALS: BP_SYST 122
[2020-10-18] MEDS: CARBIDOPA/LEVODOPA 25/100 MG TABLET GT SCH ×4 (03:10→21:58)
[2020-10-18] MEDS: PIPERACILLIN/TAZO 3.375 GM in NS 50 ML IV SCH ×4 (03:11→21:58)
[2020-10-18] MEDS: LEVOTHYROXINE SODIUM 0.1 MG TABLET GT SCH (06:16)
[2020-10-18 08:00] VITALS: BP_SYST 122
[2020-10-18] MEDS: BISACODYL 10 MG/SUPPOSITORY RC SCH (09:01)
[2020-10-18] MEDS: FOLIC ACID 1 MG TABLET GT SCH (09:01)
[2020-10-18] MEDS: D5W 1,000 ML IV SCH ×3 (09:04→17:53)
[2020-10-18 10:51] VITALS: BP_SYST 131
[2020-10-18 11:41] LABS: ANION GAP 10 (5-15); CALCIUM 8.3 mg/dL (8.4-11.0); CHLORIDE 111 mmol/L (98-107); CREATININE 1.08 mg/dL (0.55-1.30); GLUCOSE 136 mg/dL (70-99); POTASSIUM 3.2 mmol/L (3.5-5.1); SODIUM SERUM 146 mmol/L (136-145); UREA NITROGEN, BLOOD 17 mg/dL (8-21)
[2020-10-18 15:38] VITALS: BP_SYST 127
[2020-10-18 20:15] VITALS: BP_SYST 136
[2020-10-18] MEDS ORDERED: POTASSIUM CHLORIDE 20 MEQ/PKT PACKET GT ONE (20:30)
[2020-10-18] MEDS: ACETAMINOPHEN 650 MG/20.3 ML UDC GT PRN (22:01)
[2020-10-19 00:16] VITALS: BP_SYST 140
[2020-10-19] MEDS: PIPERACILLIN/TAZO 3.375 GM in NS 50 ML IV SCH ×3 (03:50→15:44)
[2020-10-19] MEDS: CARBIDOPA/LEVODOPA 25/100 MG TABLET GT SCH ×3 (03:50→14:31)
[2020-10-19 04:10] VITALS: BP_SYST 133
[2020-10-19] MEDS: D5W 1,000 ML IV SCH ×2 (04:12→14:32)
[2020-10-19] MEDS: LEVOTHYROXINE SODIUM 0.1 MG TABLET GT SCH (06:23)
[2020-10-19 07:26] LABS: ANION GAP 10 (5-15); CALCIUM 8.5 mg/dL (8.4-11.0); CHLORIDE 111 mmol/L (98-107); CREATININE 0.93 mg/dL (0.55-1.30); GLUCOSE 130 mg/dL (70-99); POTASSIUM 3.6 mmol/L (3.5-5.1); SODIUM SERUM 146 mmol/L (136-145); UREA NITROGEN, BLOOD 15 mg/dL (8-21)
[2020-10-19 08:00] VITALS: BP_SYST 139
[2020-10-19] MEDS: FOLIC ACID 1 MG TABLET GT SCH (09:13)
[2020-10-19] MEDS: BISACODYL 10 MG/SUPPOSITORY RC SCH (09:14)
[2020-10-19 12:19] VITALS: BP_SYST 123
[2020-10-19 16:54] VITALS: BP_SYST 126
[2020-10-19 20:00] VITALS: BP_SYST 152
[2020-10-20] MEDS: CARBIDOPA/LEVODOPA 25/100 MG TABLET GT SCH ×5 (00:37→20:42)
[2020-10-20] MEDS: PIPERACILLIN/TAZO 3.375 GM in NS 50 ML IV SCH ×5 (00:37→21:55)
[2020-10-20 03:44] VITALS: BP_SYST 144
[2020-10-20] MEDS: LEVOTHYROXINE SODIUM 0.1 MG TABLET GT SCH (06:08)
[2020-10-20 06:35] LABS: BASOPHILS % (AUTO) 0.5 % (0.0-2.0); EOSINOPHILS # (AUTO) 0.5 K/uL (0.0-0.4); HEMATOCRIT 33.3 % (36-54); HEMOGLOBIN 11.1 g/dL (14.0-18.0); LYMPHOCYTES # (AUTO) 1.2 K/uL (1.0-5.5); LYMPHOCYTES % (AUTO) 14.5 % (20.5-51.5); MEAN CORPUSCULAR HEMOGLOBIN 31 pg (27-31); MEAN CORPUSCULAR HGB CONC 33 % (32-36); MEAN CORPUSCULAR VOLUME 92 fL (79.0-98.0); MONOCYTES # (AUTO) 0.5 K/uL (0.0-1.0); MONOCYTES % (AUTO) 5.8 % (1.7-9.3); NEUTROPHILS % (AUTO) 73.2 % (40.0-70.0); PLATELET COUNT (AUTO) 244 K/uL (130-430); RED BLOOD CELL COUNT(AUTO) 3.61 MIL/uL (4.2-6.2); RED CELL DISTRIBUTION WIDTH 15.6 % (9.0-15.0); WHITE BLOOD COUNT (AUTO) 8.1 K/uL (4.8-10.8)
[2020-10-20 07:02] LABS: ANION GAP 11 (5-15); CALCIUM 8.6 mg/dL (8.4-11.0); CHLORIDE 111 mmol/L (98-107); CREATININE 0.98 mg/dL (0.55-1.30); GLUCOSE 142 mg/dL (70-99); POTASSIUM 3.6 mmol/L (3.5-5.1); SODIUM SERUM 147 mmol/L (136-145); UREA NITROGEN, BLOOD 15 mg/dL (8-21)
[2020-10-20] MEDS: FOLIC ACID 1 MG TABLET GT SCH (08:45)
[2020-10-20] MEDS: BISACODYL 10 MG/SUPPOSITORY RC SCH (08:46)
[2020-10-20 09:14] VITALS: BP_SYST 143
[2020-10-20 13:13] VITALS: BP_SYST 131
[2020-10-20 16:46] VITALS: BP_SYST 145
[2020-10-20] MEDS: D5W 1,000 ML IV SCH (17:50)
[2020-10-20 20:00] VITALS: BP_SYST 140
[2020-10-21 00:54] VITALS: BP_SYST 124
[2020-10-21] MEDS: CARBIDOPA/LEVODOPA 25/100 MG TABLET GT SCH ×2 (03:29→09:27)
[2020-10-21] MEDS: PIPERACILLIN/TAZO 3.375 GM in NS 50 ML IV SCH ×2 (03:29→09:30)
[2020-10-21] MEDS: LEVOTHYROXINE SODIUM 0.1 MG TABLET GT SCH (05:58)
[2020-10-21 08:03] VITALS: BP_SYST 155
[2020-10-21] MEDS: BISACODYL 10 MG/SUPPOSITORY RC SCH (09:27)
[2020-10-21] MEDS: FOLIC ACID 1 MG TABLET GT SCH (09:27)
[2020-10-21 10:35] VITALS: BP_SYST 144
[2020-10-21 12:00] VITALS: BP_SYST 144
== END 2020-10-21 11:55 | DRG 871 ==
LOC: SED 15:37 → STU 19:12 → SIC 21:08 → STU 10-15 08:49
PROVIDERS: ADMIT Internal Medicine; ATTEND Internal Medicine
DX: A41.59 Other Gram-negative sepsis (principal); R65.21 Severe sepsis with septic shock; J96.90 Respiratory failure, unspecified, unspecified whether with hypoxia or hypercapnia; G93.41 Metabolic encephalopathy; E43 Unspecified severe protein-calorie malnutrition; N17.9 Acute kidney failure, unspecified; I69.351 Hemiplegia and hemiparesis following cerebral infarction affecting right dominant side; K92.0 Hematemesis; N10 Acute pyelonephritis; L97.429 Non-pressure chronic ulcer of left heel and midfoot with unspecified severity; L97.419 Non-pressure chronic ulcer of right heel and midfoot with unspecified severity; E86.0 Dehydration; D63.8 Anemia in other chronic diseases classified elsewhere; E03.9 Hypothyroidism, unspecified; E11.22 Type 2 diabetes mellitus with diabetic chronic kidney disease; E11.621 Type 2 diabetes mellitus with foot ulcer; F02.80 Dementia in other diseases classified elsewhere, unspecified severity, without behavioral disturbance, psychotic disturbance, mood disturbance, and anxiety; G20 Parkinson's disease; G30.9 Alzheimer's disease, unspecified; I12.9 Hypertensive chronic kidney disease with stage 1 through stage 4 chronic kidney disease, or unspecified chronic kidney disease; I48.91 Unspecified atrial fibrillation; K21.9 Gastro-esophageal reflux disease without esophagitis; K56.41 Fecal impaction; N18.9 Chronic kidney disease, unspecified; Z20.822 Contact with and (suspected) exposure to COVID-19; N20.0 Calculus of kidney; N40.0 Benign prostatic hyperplasia without lower urinary tract symptoms; Z74.01 Bed confinement status; Z86.718 Personal history of other venous thrombosis and embolism; Z95.0 Presence of cardiac pacemaker; Z79.899 Other long term (current) drug therapy; Z88.8 Allergy status to other drugs, medicaments and biological substances
CPT/HCPCS: 36415; 36600; 71045; 76376; 80048; 80053; 80061; 80202; 81000; 82043; 82150; 82570; 82803-TC; 82962; 83036; 83605; 83735; 83880; 84100; 84302; 84439; 84443; 85007; 85025; 85027; 85379; 85610-TC; 85730-TC; 87040-TC; 87081; 87086; 93005; 93306; 96361; 96365; 96375; 99291; 99292; C9113; G0378; J1815; J1956; J2543; J3370; J3480; J3490; J7050; P9046